=== PATIENT | female | born 1985 | race American Indian/Alaskan Native ===

== ENCOUNTER 2016-04-23 17:20 | Emergency (ER) | payer OTHER, MEDICAID ==
--- NOTE | 2016-04-23 17:39 | EDM.PDOC ---
ED HPI GENERAL MEDICAL PROBLEM - General Chief Complaint: General Stated Complaint: FEELING SHAKY Time Seen by Provider: 04/23/16 17:38 Source of Information: Reports: Patient, RN, RN notes reviewed History Limitations: Reports: No limitations - History of Present Illness INITIAL COMMENTS - FREE TEXT/NARRATIVE: Patient complains of shadkey, lightheaded and weak around 10:30 a.m. and again around 2:30-3 p.m. each day for 6 years but worse this week. Episodes last about 1 hour. Symptoms usually resolve when she eats. Denies excess thirst. No weight changes. New med (Protonix) since 1 month ago, but denies change in symptoms with med. Severity: moderate Improves with: Reports: None Worsens with: Reports: None Associated Symptoms: Reports: no other symptoms - Related Data Allergies Allergy/AdvReac Type Severity Reaction Status Date / Time No Known Allergies Allergy Verified 04/23/16 17:26 Home Meds: Home Meds Ibuprofen 1 tab PO ASDIRECTED PRN 10/12/14 [History] Olopatadine [Pataday 0.2% Ophth Soln] 1 drop EYEBOTH ASDIRECTED 10/12/14 [ History] Ferrous Sulfate [Iron] PO BID 04/23/16 [History] PNV95/Ferrous Fumarate/FA [ Tablet] 1 each PO DAILY 04/23/16 [History] Pantoprazole Sodium [Protonix] 20 mg PO DAILY 04/23/16 [History] Past Medical History - Past Health History Medical/Surgical History: Denies Medical/Surgical History HEENT History: Reports: Allergic rhinitis, Other (see below) Other HEENT History: recurrent tonsillitis Cardiovascular History: Reports: None Respiratory History: Reports: None Gastrointestinal History: Reports: GERD, Hiatal hernia, Other (see below) ( hital hernia) Genitourinary History: Reports: None : 0 Para: 0 Other OB/BYN History: ADOPTED ONE SON Musculoskeletal History: Reports: Other (see below) Other Musculoskeletal History: CERVICAL INTRAEPITHELIAL NEOPLASIA GRADE 3 Neurological History: Reports: None Psychiatric History: Reports: None Endocrine/Metabolic History: Reports: None, Obesity/BMI 30+ (morbid) Hematologic History: Reports: None, Anemia Immunologic History: Reports: None Oncologic (Cancer) History: Reports: None Dermatologic History: Reports: None - Infectious Disease History Infectious Disease History: Reports: Chicken pox - Past Surgical History Female Surgical History: Reports: Other (see below) Other Female Surgeries/Procedures: VAGINAL CERVICAL LEEP TREATMENT Other Neurological Surgeries/Procedures: EMG-2 EXTREMITIES Social & Family History - Family History Family Medical History: Noncontributory Endocrine/Metabolic: Reports: Diabetes, type II (both parents) - Tobacco Use Smoking Status *Q: Never Smoker Second Hand Smoke Exposure: No - Caffeine Use Caffeine Use: Reports: Tea - Alcohol Use Alcohol Use History: No Days Per Week of Alcohol Use: 0 - Recreational Drug Use Recreational Drug Use: No - Living Situation & Occupation Living situation: Reports: single Social History Comment: 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 ED ROS GENERAL - Review of Systems Review Of Systems: ROS reveals no pertinent complaints other than HPI. ED EXAM, GENERAL - Physical Exam Exam: See Below Exam Limited By: No limitations General Appearance: obese Eye Exam: bilateral eye: normal inspection Ears: normal external exam, normal canal, hearing grossly normal, normal TMs Nose: normal inspection, normal mucosa, no blood Throat/Mouth: Normal inspection, Normal lips, Normal teeth, Normal gums, Normal oropharynx, Normal voice, No airway compromise Head: atraumatic, normocephalic Neck: normal inspection, supple, non-tender, full range of motion Respiratory/Chest: no respiratory distress, lungs clear, normal breath sounds, no accessory muscle use, chest non-tender Cardiovascular: normal peripheral pulses, regular rate, rhythm, no edema, no gallop, no JVD, no murmur, no rub GI/Abdominal: other (benign obese abdomen) Back Exam: normal inspection, full range of motion, NT Extremities: normal inspection, normal range of motion, non-tender, normal capillary refill, no pedal edema Neurological: alert Psychiatric: normal affect, normal mood Skin Exam: Warm, Dry, Intact, Normal color, No rash Lymphatic: no adenopathy EKG INTERPRETATION EKG Date: 04/23/16 Time: 17:54 Rhythm: other (sinus arrhythmia) Rate (beats/min): 60 (variable 52-71.) [place]: normal P-wave: present QRS: normal ST-T: normal QT: normal Comparison: NA - no prior EKG Course - Vital Signs Last Recorded V/S: Last Vital Signs Temp 36.3 C 04/23/16 17:28 Pulse 60 04/23/16 17:28 Resp 16 04/23/16 17:28 BP 155/66 H 04/23/16 17:28 Pulse Ox 100 04/23/16 17:28 Orthostatic Blood Pressure [ 142/77 Standing] Orthostatic Blood Pressure [ 145/87 Sitting] Orthostatic Blood Pressure [ 133/81 Supine] - Orders/Labs/Meds Orders: Active Orders 24 hr Category Date Time Status EKG 12 Lead [EKG Documentation Completion] [RC] STAT Care 04/23/16 17:51 Active Orthostatic Vital Signs [RC] ASDIRECTED Care 04/23/16 17:52 Active DRUG SCREEN URINE BIORAD [URCHEM] Stat Lab 04/23/16 17:50 Received THYROXINE (T4) [REF] Stat Lab 04/23/16 18:12 Received TSH ULTRASENSITIVE [CHEM] Stat Lab 04/23/16 18:12 Received Labs: Laboratory Tests 04/23/16 04/23/16 04/23/16 Range/Units 17:50 17:50 18:12 WBC 12.8 H (5.0-10.0) 10^3/uL RBC 4.82 (4.2-5.4) 10^6/uL Hgb 11.7 L (12.0-16.0) g/dL Hct 36.9 L (37.0-47.0) % MCV 76.6 L (80-100) fL MCH 24.3 L (27.0-34.0) pg MCHC 31.7 L (33.0-35.0) g/dL Plt Count 315 (150-450) 10^3/uL Neut % (Auto) 63.3 (42.2-75.2) % Lymph % (Auto) 26.9 (20.5-50.1) % [place] % (Auto) 7.8 (2-8) % Eos % (Auto) 1.7 (1.0-3.0) % Baso % (Auto) 0.3 (0.0-1.0) % D-Dimer, Quantitative (0-400) ng/mL Sodium (135-145) mmol/L Potassium (3.6-5.0) mmol/L Chloride (101-111) mmol/L Carbon Dioxide (21.0-31.0) mmol/L Anion Gap BUN (7-18) mg/dL Creatinine (0.6-1.3) mg/dL Est Cr Clr Drug Dosing mL/min Estimated GFR (MDRD) BUN/Creatinine Ratio Glucose (74-105) mg/dL Calcium (8.4-10.2) mg/dl Magnesium (1.8-2.5) mg/dL Total Bilirubin (0.2-1.0) mg/dL AST (10-42) IU/L ALT (10-60) IU/L Alkaline Phosphatase (42-121) IU/L Total Protein (6.7-8.2) g/dl Albumin (3.2-5.5) g/dl Globulin Albumin/Globulin Ratio Amylase (28-100) U/L Lipase (22-51) U/L Urine Color Light yellow (YELLOW) Urine Appearance Slightly cloudy (CLEAR) Urine pH 6.0 (5.0-9.0) Ur Specific [place] 1.010 (1.005-1.030) Urine Protein Negative (NEGATIVE) Urine Glucose (UA) Negative (NEGATIVE) Urine Ketones Negative (NEGATIVE) Urine Occult Blood Moderate H (NEGATIVE) Urine Nitrite Negative (NEGATIVE) Urine Bilirubin Negative (NEGATIVE) Urine Urobilinogen 0.2 (0.2-1.0) mg/dL Ur Leukocyte Esterase Negative (NEGATIVE) Urine RBC 5-10 H /HPF Urine WBC 0-5 (0-5/HPF) /HPF Ur Epithelial Cells Few /HPF Urine Bacteria Rare (0-FEW/HPF) /HPF Urine HCG, Qual Negative 04/23/16 04/23/16 Range/Units 18:12 18:12 WBC (5.0-10.0) 10^3/uL RBC (4.2-5.4) 10^6/uL Hgb (12.0-16.0) g/dL Hct (37.0-47.0) % MCV (80-100) fL MCH (27.0-34.0) pg MCHC (33.0-35.0) g/dL Plt Count (150-450) 10^3/uL Neut % (Auto) (42.2-75.2) % Lymph % (Auto) (20.5-50.1) % [place] % (Auto) (2-8) % Eos % (Auto) (1.0-3.0) % Baso % (Auto) (0.0-1.0) % D-Dimer, Quantitative < 100 (0-400) ng/mL Sodium 138 (135-145) mmol/L Potassium 3.8 (3.6-5.0) mmol/L Chloride 101 (101-111) mmol/L Carbon Dioxide 30.0 (21.0-31.0) mmol/L Anion Gap 10.8 BUN 13 (7-18) mg/dL Creatinine 0.8 (0.6-1.3) mg/dL Est Cr Clr Drug Dosing 83.51 mL/min Estimated GFR (MDRD) > 60 BUN/Creatinine Ratio 16.25 Glucose 88 (74-105) mg/dL Calcium 8.7 (8.4-10.2) mg/dl Magnesium 2.1 (1.8-2.5) mg/dL Total Bilirubin 0.3 (0.2-1.0) mg/dL AST 19 (10-42) IU/L ALT 26 (10-60) IU/L Alkaline Phosphatase 77 (42-121) IU/L Total Protein 7.5 (6.7-8.2) g/dl Albumin 3.7 (3.2-5.5) g/dl Globulin 3.8 Albumin/Globulin Ratio 0.97 Amylase 66 (28-100) U/L Lipase 39 (22-51) U/L Urine Color (YELLOW) Urine Appearance (CLEAR) Urine pH (5.0-9.0) Ur Specific [place] (1.005-1.030) Urine Protein (NEGATIVE) Urine Glucose (UA) (NEGATIVE) Urine Ketones (NEGATIVE) Urine Occult Blood (NEGATIVE) Urine Nitrite (NEGATIVE) Urine Bilirubin (NEGATIVE) Urine Urobilinogen (0.2-1.0) mg/dL Ur Leukocyte Esterase (NEGATIVE) Urine RBC /HPF Urine WBC (0-5/HPF) /HPF Ur Epithelial Cells /HPF Urine Bacteria (0-FEW/HPF) /HPF Urine HCG, Qual Departure - Departure Time of Disposition: 18:53 Disposition: Home, Self-Care 01 Condition: good Clinical Impression: Intermittent lightheadedness Instructions: Near-Syncope Forms: ED Department Discharge Additional Instructions: Follow up in clinic with your primary care provider for further evaluation. - My Orders Last 24 Hours: My Active Orders 04/23/16 17:50 DRUG SCREEN URINE BIORAD [URCHEM] Stat 04/23/16 17:51 EKG 12 Lead [EKG Documentation Completion] [RC] STAT 04/23/16 17:52 Orthostatic Vital Signs [RC] ASDIRECTED 04/23/16 18:12 THYROXINE (T4) [REF] Stat TSH ULTRASENSITIVE [CHEM] Stat - Assessment/Plan Last 24 Hours: My Active Orders 04/23/16 17:50 DRUG SCREEN URINE BIORAD [URCHEM] Stat 04/23/16 17:51 EKG 12 Lead [EKG Documentation Completion] [RC] STAT 04/23/16 17:52 Orthostatic Vital Signs [RC] ASDIRECTED 04/23/16 18:12 THYROXINE (T4) [REF] Stat TSH ULTRASENSITIVE [CHEM] Stat
[2016-04-23 18:47] LABS: CHLORIDE,CL 101 mmol/L (101-111); SODIUM,NA 138 mmol/L (135-145)
[2016-04-23 19:04] VITALS: BP 101/65
--- NOTE | 2016-05-14 22:46 | EKG ---
04/23/2016 - DESTINY ANNE E - TIME: 1754 EKG shows normal sinus rhythm. [facility] /[id number]
== END 2016-04-23 19:02 | disposition home or self-care (01) ==
LOC: DL.ED 17:20
DX: R42 Dizziness and giddiness (principal); K21.9 Gastro-esophageal reflux disease without esophagitis; E66.9 Obesity, unspecified; D64.9 Anemia, unspecified; Z79.899 Other long term (current) drug therapy
CPT/HCPCS: 36415; 80053; 80305; 81001; 81025; 82150; 83690; 83735; 84436; 84443; 85025; 85379; 93005; 99283

== ENCOUNTER 2016-06-11 12:39 | Emergency (ER) | payer OTHER, MEDICAID ==
[2016-06-11 12:54] VITALS: BP 148/87
[2016-06-11] MEDS ORDERED: LORazepam 2 MG/ML Syringe IVPUSH ONE (13:01)
[2016-06-11] MEDS ORDERED: Sodium Chloride 0.9% 10 ML Syringe FLUSH PRN (13:01)
--- NOTE | 2016-06-11 13:09 | EDM.PDOC ---
ED [facility] Behavioral Health - General Chief Complaint: Behavioral/Psych Stated Complaint: [id number] ANXIETY ATTACK Time Seen by Provider: 06/11/16 12:55 Source of Information: Reports: Patient Exam Limitations: Reports: No limitations - History of Present Illness INITIAL COMMENTS - FREE TEXT/NARRATIVE: This 31 yo female patient reports to the ED due to an anxiety attack. The patient reports she was working at [employer] with the [place] when she started to feel anxious (difficulties catching her breath, a feeling like something bad was going to happen and knots in her stomach). The patient reports she left her desk, went outside and took an Ativan (0.5 mg). The patient reports she started to feel better after a short amount of time. The patient then came to [place] when she started to have anxiety again. The patient came to the ED for further evaluation and care. The patient reports she has not had any recent changes in her family (no deaths or relationship changes) . The patient reports she does have an 11 yo son that has been doing well in school. The patient has been seeing Dr. Raphael for anxiety and is currently taking Welbutrin. The patient reports she had a dose increase about 2 weeks ago and is scheduled to see Dr. Raphael next month. The patient reports she has been feeling like her stomach is in knots over the past week or two with increased symptoms today. The patient denies any recent illnesses or injuries. The patient reports a past history of anxiety, but no depression. The patient has also seen a counselor for some relaxation techniques, but they have not helped much. The patient reports she did lift some weights, but has not had any cardio workouts for the past 2 weeks. Onset of Symptoms: Reports: today, sudden Symptom Onset Date: 06/11/16 Symptom Onset Time: 10:00 Duration of Symptoms: Reports: Intermittent, Recurring Severity: moderate Context, Behavioral Health: Reports: other (unknown) Associated Symptoms: Reports: anxiety Treatments W[employer] POLISHER: Reports: Other medication(s) (Ativan (0.5 mg)) - SAD Persons Scale (SPS) SPS Sex: Female SPS Age: Between 18-65 Years of Age SPS Depression: No SPS Previous Suicide Attempts: No SPS Alcohol Abuse/Drug Abuse: No SPS Rational Thinking Loss: No SPS Social Support Deficit: No SPS Organized Suicide Plan: No SPS No Spouse/Significant Other: No SPS Sickness: No SPS Sad Person Scale Score: 0 - Related Data Allergies Allergy/AdvReac Type Severity Reaction Status Date / Time No Known Allergies Allergy Verified 04/23/16 17:26 Home Medications: Home Meds Ibuprofen 1 tab PO ASDIRECTED PRN 10/12/14 [History] Olopatadine [Pataday 0.2% Ophth Soln] 1 drop EYEBOTH ASDIRECTED 10/12/14 [ History] Ferrous Sulfate [Iron] 1 tab PO BID 04/23/16 [History] Pantoprazole Sodium [Protonix] 20 mg PO DAILY 04/23/16 [History] LORazepam [Ativan] 0.5 mg PO BID 06/11/16 [History] buPROPion HCl [Wellbutrin Xl] 300 mg PO DAILY 06/11/16 [History] Past Medical History - Past Health History Medical/Surgical History: Denies Medical/Surgical History HEENT History: Reports: Allergic rhinitis, Other (see below) Other HEENT History: recurrent tonsillitis Cardiovascular History: Reports: None Respiratory History: Reports: None Gastrointestinal History: Reports: GERD, Hiatal hernia Genitourinary History: Reports: None Other OB/BYN History: ADOPTED ONE SON Musculoskeletal History: Reports: Other (see below) Other Musculoskeletal History: CERVICAL INTRAEPITHELIAL NEOPLASIA GRADE 3 Neurological History: Reports: None Psychiatric History: Reports: Anxiety Endocrine/Metabolic History: Reports: None, Obesity/BMI 30+ Hematologic History: Reports: Anemia Immunologic History: Reports: None Oncologic (Cancer) History: Reports: None Dermatologic History: Reports: None - Infectious Disease History Infectious Disease History: Reports: Chicken pox - Past Surgical History Female Surgical History: Reports: Other (see below) Other Female Surgeries/Procedures: VAGINAL CERVICAL LEEP TREATMENT Other Neurological Surgeries/Procedures: EMG-2 EXTREMITIES Social & Family History - Family History Family Medical History: Noncontributory Endocrine/Metabolic: Reports: Diabetes, type II - Tobacco Use Smoking Status *Q: Never Smoker Second Hand Smoke Exposure: No - Caffeine Use Caffeine Use: Reports: None - Alcohol Use Days Per Week of Alcohol Use: 0 - Recreational Drug Use Recreational Drug Use: No - Living Situation & Occupation Living situation: Reports: single ED ROS GENERAL - Review of Systems Review Of Systems: ROS reveals no pertinent complaints other than HPI. ED EXAM, BEHAVIORAL HEALTH - Physical Exam Exam: See Below Exam Limited By: No limitations General Appearance: alert, WD/WN, anxious, moderate distress, obese Eye Exam: bilateral eye: EOMI, normal inspection, PERRL Ears: normal external exam, normal canal, hearing grossly normal, normal TMs Nose: normal inspection, normal mucosa, no blood Throat/Mouth: Normal inspection, Normal lips, Normal teeth, Normal gums, Normal oropharynx, Normal voice, No airway compromise Head: atraumatic, normocephalic Neck: normal inspection, supple, non-tender, full range of motion Respiratory/Chest: no respiratory distress, lungs clear, normal breath sounds, no accessory muscle use, chest non-tender Cardiovascular: normal peripheral pulses, regular rate, rhythm, no edema, no gallop, no JVD, no murmur, no rub GI/Abdominal: normal bowel sounds, soft, non tender, no organomegaly, no distention, no abnormal bruit, no mass (Female) Exam: Deferred Rectal (Female) Exam: Deferred Back Exam: normal inspection, full range of motion, NT Extremities: normal inspection, normal range of motion, non-tender, normal capillary refill, no pedal edema Neurological: alert, normal mood/affect, CN II-XII intact, normal cognition, normal gait, no motor/sensory deficits, oriented x 3 Psychiatric: alert, normal cognition, oriented, tearful, agitated Skin Exam: Warm, Dry, Intact, Normal color, No rash COURSE, BEHAVIORAL HEALTH COMP - Course Vital Signs: Last Vital Signs Temp 36.6 C 06/11/16 12:50 Pulse 71 06/11/16 12:50 Resp 18 06/11/16 12:50 BP 148/87 H 06/11/16 12:50 Pulse Ox 100 06/11/16 12:50 Orders, Labs, Meds: Active Orders 24 hr Category Date Time Status Sodium Chloride 0.9% [Saline Flush] Med 06/11/16 13:01 Ordered 10 ml FLUSH ASDIRECTED PRN Saline Lock Insert [OM.PC] Routine Oth 06/11/16 13:01 Ordered Medication Orders Sodium Chloride (Saline Flush) 10 ml FLUSH ASDIRECTED PRN PRN Reason: Keep Vein Open Medications Generic Name Dose Route Start Last Admin Trade Name Freq PRN Reason Stop Dose Admin Sodium Chloride 10 ml 06/11/16 13:01 Saline Flush FLUSH ASDIRECTED PRN Keep Vein Open Discontinued Medications Generic Name Dose Route Start Last Admin Trade Name Freq PRN Reason Stop Dose Admin Lorazepam 1 mg 06/11/16 13:01 06/11/16 13:09 Ativan IVPUSH 06/11/16 13:02 1 mg ONETIME ONE Administration Departure - Departure Time of Disposition: 13:30 Disposition: Home, Self-Care 01 Condition: fair Clinical Impression: Anxiety Instructions: Panic Attacks, [id number] Forms: ED Department Discharge Care Plan Goals: The patient was advised of the examination results during the visit. The patient was given an IV dose of Ativan while in the ED. After the medication, the patient reports feeling much better. The patient was encouraged to continue to take her medications as prescribed, follow-up with Dr. Raphael and attempt to increase her exercise. If the patient has any additional symptoms or concerns , the patient should follow-up with her primary care facility or return to the emergency department. - My Orders Last 24 Hours: My Active Orders 06/11/16 13:01 Sodium Chloride 0.9% [Saline Flush] 10 ml FLUSH ASDIRECTED PRN Saline Lock Insert [OM.PC] Routine - Assessment/Plan Last 24 Hours: My Active Orders 06/11/16 13:01 Sodium Chloride 0.9% [Saline Flush] 10 ml FLUSH ASDIRECTED PRN Saline Lock Insert [OM.PC] Routine
== END 2016-06-11 13:37 | disposition home or self-care (01) ==
LOC: DL.ED 12:39
DX: F41.9 Anxiety disorder, unspecified (principal); E66.9 Obesity, unspecified; K21.9 Gastro-esophageal reflux disease without esophagitis; D64.9 Anemia, unspecified; Z79.899 Other long term (current) drug therapy
CPT/HCPCS: 96374; 99282; J2060

== ENCOUNTER 2016-07-01 19:59 | Emergency (ER) | payer OTHER, MEDICAID ==
[2016-07-01 22:38] VITALS: BP 138/88
--- NOTE | 2016-07-01 22:59 | EDM.PDOC ---
ED HPI GENERAL MEDICAL PROBLEM - General Chief Complaint: Lower Extremity Injury/Pain Stated Complaint: RT KNEE PAIN Time Seen by Provider: 07/01/16 22:30 Source of Information: Reports: Patient History Limitations: Reports: No Limitations - History of Present Illness INITIAL COMMENTS - FREE TEXT/NARRATIVE: pain right knee twisted while playing softball, Hurts to walk increased pain medially, does not feelweaker or going to give out Onset: Today Treatments CHIEF OF [employer]ICE: Reports: Other (see below) Other Treatments CHIEF OF [employer]ICE: none Right Knee Pain Score (Numeric/FACES): 8 - Related Data Allergies Allergy/AdvReac Type Severity Reaction Status Date / Time No Known Allergies Allergy Verified 07/01/16 22:03 Home Meds: Home Meds Ibuprofen 1 tab PO ASDIRECTED PRN 10/12/14 [History] Olopatadine [Pataday 0.2% Ophth Soln] 1 drop EYEBOTH ASDIRECTED 10/12/14 [ History] Ferrous Sulfate [Iron] 1 tab PO BID 04/23/16 [History] Pantoprazole Sodium [Protonix] 20 mg PO DAILY 04/23/16 [History] LORazepam [Ativan] 1 mg PO BID 06/11/16 [History] DULoxetine [Cymbalta] 20 mg PO DAILY 07/01/16 [History] Eye Drops For Allergies 1 drop EYEBOTH ASDIRECTED PRN 07/01/16 [History] Naproxen 250 mg PO BID PRN 07/01/16 [History] Past Medical History - Past Health History Medical/Surgical History: Denies Medical/Surgical History HEENT History: Reports: Allergic Rhinitis, Other (See Below) Other HEENT History: recurrent tonsillitis Cardiovascular History: Reports: None Respiratory History: Reports: None Gastrointestinal History: Reports: GERD, Hiatal Hernia Genitourinary History: Reports: None Other OB/BYN History: ADOPTED ONE SON Musculoskeletal History: Reports: Other (See Below) Other Musculoskeletal History: right knee sprain Neurological History: Reports: None Psychiatric History: Reports: Anxiety Endocrine/Metabolic History: Reports: None, Obesity/BMI 30+ Hematologic History: Reports: Anemia Immunologic History: Reports: None Oncologic (Cancer) History: Reports: None Dermatologic History: Reports: None - Infectious Disease History Infectious Disease History: Reports: Chicken Pox - Past Surgical History Other Neurological Surgeries/Procedures: EMG-2 EXTREMITIES Social & Family History - Family History Family Medical History: Noncontributory Endocrine/Metabolic: Reports: Diabetes, type II - Tobacco Use Smoking Status *Q: Unknown Ever Smoked Second Hand Smoke Exposure: Yes - Caffeine Use Caffeine Use: Reports: Coffee - Alcohol Use Days Per Week of Alcohol Use: 0 - Recreational Drug Use Recreational Drug Use: No - Living Situation & Occupation Living situation: Reports: Single Review of Systems - Review of Systems Review Of Systems: See Below Musculoskeletal: Reports: Joint Pain (right knee), Joint Swelling (mild) Skin: Reports: No Symptoms Neurological: Reports: No Symptoms Trauma Exam - Physical Exam Exam: See Below Exam Limited By: No Limitations General Appearance: Reports: Mild Distress Head: Reports: Atraumatic, Normocephalic Eyes: Bilateral Eye: EOMI Ears: Reports: Normal External Exam Throat/Mouth: Reports: Normal Lips, Normal Voice Neck: Reports: Full Range of Motion Respiratory Exam: Reports: No Respiratory Distress Cardiovascular: Reports: Regular Rate, Rhythm Extremities: Bony-Point Tenderness (right mediala knee), Joint Effusion (mild crepitus), Pain with Movement, Tenderness (increased pain with medial stress. ) , Unable to Bear Weight (guarded) Course - Vital Signs Last Recorded V/S: Last Vital Signs Temp 98.3 F 07/01/16 22:37 Pulse 88 07/01/16 22:37 Resp 16 07/01/16 22:37 BP 138/88 07/01/16 22:37 Pulse Ox 96 07/01/16 22:37 - Orders/Labs/Meds Meds: Medications Discontinued Medications Generic Name Dose Route Start Last Admin Trade Name Jose PRN Reason Stop Dose Admin Hydrocodone Bitart/Acetaminophen Confirm 07/01/16 23:08 07/01/16 23:15 [place] 325-10 Mg Administered 07/01/16 23:09 Not Given Dose 2 tab .ROUTE .STK-MED ONE - Radiology Interpretation Free Text/Narrative:: xray negative for fracture or dislocation Departure - Departure Time of Disposition: 23:00 Disposition: Home, Self-Care 01 Condition: good Clinical Impression: Sprain of knee - Discharge Information Instructions: Crutch Use, [id number], Knee Sprain, [id number] Forms: ED Department Discharge Additional Instructions: crutches, touch toe weight bearing knee immobilizer clinic followup Thursday hydrocodone 10/325 one every 6 hours as needed for severe pain #2 alternating tylenol 650mg and ibuprofen 600mg every 4 hours as needed ice to knee
[2016-07-01] MEDS ORDERED: Acetaminophen/HYDROcodone 325-10 MG Tab ONE (23:08)
[2016-07-01] MEDS ORDERED: Acetaminophen/HYDROcodone 325-10 MG Tab PO ONE (23:08)
== END 2016-07-01 23:09 | disposition home or self-care (01) ==
LOC: DL.ED 19:59
DX: S83.91XA Sprain of unspecified site of right knee, initial encounter (principal); K21.9 Gastro-esophageal reflux disease without esophagitis; F41.9 Anxiety disorder, unspecified; E66.9 Obesity, unspecified; D64.9 Anemia, unspecified; Z79.899 Other long term (current) drug therapy; X50.1XXA Overexertion from prolonged static or awkward postures, initial encounter
CPT/HCPCS: 73562; 99283; A9270

== ENCOUNTER 2016-09-02 10:11 | Emergency (ER) | payer OTHER, MEDICAID ==
--- NOTE | 2016-09-02 10:48 | EDM.PDOC ---
ED HPI GENERAL MEDICAL PROBLEM - General Chief Complaint: Genitourinary Problem Stated Complaint: [id number] 6/7 WEEKS PREG DISCHARGE AND BACK PAIN Time Seen by Provider: 09/02/16 10:40 Source of Information: Reports: Patient History Limitations: Reports: No Limitations - History of Present Illness INITIAL COMMENTS - FREE TEXT/NARRATIVE: This 31 yo female patient reports to the ED with vaginal discharge and right lower back pain. The patient reports she had some lower abdominal cramping yesterday. The patient reports her discharge was a mixture of mucus as well as some dark colored fluid. The patient reports she did do some increased exercise yesterday (walking at [employer]). The patient reports that this is her first . The patient has been seeing Dr. Raphael and has another appointment on Thursday to check her hormone levels. Onset: Today, Sudden Duration: Constant Location: Reports: Abdomen, Back (right lower back) Quality: Reports: Ache, Dull Severity: Moderate Improves with: Reports: Rest Worsens with: Reports: Movement Associated Symptoms: Reports: No Other Symptoms Right Lower Back Pain Score (Numeric/FACES): 6 - Related Data Allergies Allergy/AdvReac Type Severity Reaction Status Date / Time No Known Allergies Allergy Verified 09/02/16 10:16 Home Meds: Home Meds Pantoprazole Sodium [Protonix] 20 mg PO DAILY 04/23/16 [History] Pnv No.95/Ferrous Fum/Folic AC [ Multivitamin Tablet] 1 tab PO DAILY [History] Past Medical History - Past Health History Medical/Surgical History: Denies Medical/Surgical History HEENT History: Reports: Allergic Rhinitis, Impaired Vision, Other (See Below) Other HEENT History: recurrent tonsillitis Cardiovascular History: Reports: None Respiratory History: Reports: None Gastrointestinal History: Reports: GERD, Hiatal Hernia Genitourinary History: Reports: None 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 OB/BYN History: ADOPTED ONE SON Musculoskeletal History: Reports: Other (See Below) Other Musculoskeletal History: right knee sprain Neurological History: Reports: None Psychiatric History: Reports: Anxiety Endocrine/Metabolic History: Reports: None, Obesity/BMI 30+ Hematologic History: Reports: Anemia Immunologic History: Reports: None Oncologic (Cancer) History: Reports: None Dermatologic History: Reports: None - Infectious Disease History Infectious Disease History: Reports: Chicken Pox - Past Surgical History Other Neurological Surgeries/Procedures: EMG-2 EXTREMITIES Social & Family History - Family History Family Medical History: Noncontributory Endocrine/Metabolic: Reports: Diabetes, type II - Tobacco Use Smoking Status *Q: Former Smoker Used Tobacco, but Quit: Yes Month Tobacco Last Used: ? Second Hand Smoke Exposure: Yes - Caffeine Use Caffeine Use: Reports: Coffee, Tea - Alcohol Use Days Per Week of Alcohol Use: 0 - Recreational Drug Use Recreational Drug Use: No - Living Situation & Occupation Living situation: Reports: Single ED ROS GENERAL - Review of Systems Review Of Systems: ROS reveals no pertinent complaints other than HPI. ED EXAM, RENAL/ - Physical Exam Exam: See Below Exam Limited By: No Limitations General Appearance: Alert, WD/WN, Mild Distress, Obese Eye Exam: Bilateral Eye: EOMI, Normal Inspection, PERRL Ears: Normal External Exam, Normal Canal, Hearing Grossly Normal, Normal TMs Nose: Normal Inspection, Normal Mucosa, No Blood Throat/Mouth: Normal Inspection, Normal Lips, Normal Teeth, Normal Gums, Normal Oropharynx, Normal Voice, No Airway Compromise Head: Atraumatic, Normocephalic Neck: Normal Inspection, Supple, Non-Tender, Full Range of Motion Respiratory/Chest: No Respiratory Distress, Lungs Clear, Normal Breath Sounds, No Accessory Muscle Use, Chest Non-Tender Cardiovascular: Normal Peripheral Pulses, Regular Rate, Rhythm, No Edema, No Gallop, No JVD, No Murmur, No Rub GI/Abdominal: Normal Bowel Sounds, Soft, No Organomegaly, No Distention, No Abnormal Bruit, No Mass, Pelvis Stable, Tender (lower abdomen) (Female) Exam: Deferred Rectal (Female) Exam: Deferred Back Exam: Paraspinal Tenderness (right lower back) Extremities: Normal Inspection, Normal Range of Motion, Non-Tender, Normal Capillary Refill, No Pedal Edema Neurological: Alert, Oriented, CN II-XII Intact, Normal Cognition, Normal Gait, Normal Reflexes, No Motor/Sensory Deficits Psychiatric: Normal Affect, Normal Mood Skin Exam: Warm, Dry, Intact, Normal Color, No Rash Lymphatic: No Adenopathy Course - Vital Signs Last Recorded V/S: Last Vital Signs Temp 36.9 C 09/02/16 12:14 Pulse 62 09/02/16 12:14 Resp 14 09/02/16 12:14 BP 120/73 09/02/16 12:14 Pulse Ox 100 09/02/16 12:14 - Orders/Labs/Meds Orders: Active Orders 24 hr Category Date Time Status OB Transvaginal [US] Urgent Exams 09/02/16 11:11 Ordered Labs: Laboratory Tests 09/02/16 09/02/16 09/02/16 Range/Units 10:28 10:28 10:30 WBC 8.6 (5.0-10.0) 10^3/uL RBC 4.54 (4.2-5.4) 10^6/uL Hgb 12.1 (12.0-16.0) g/dL Hct 37.1 (37.0-47.0) % MCV 81.7 (80-100) fL MCH 26.7 L (27.0-34.0) pg MCHC 32.6 L (33.0-35.0) g/dL Plt Count 299 (150-450) 10^3/uL Neut % (Auto) 74.3 (42.2-75.2) % Lymph % (Auto) 17.7 L (20.5-50.1) % [place] % (Auto) 5.7 (2-8) % Eos % (Auto) 2.1 (1.0-3.0) % Baso % (Auto) 0.2 (0.0-1.0) % Sodium (135-145) mmol/L Potassium (3.6-5.0) mmol/L Chloride (101-111) mmol/L Carbon Dioxide (21.0-31.0) mmol/L Anion Gap BUN (7-18) mg/dL Creatinine (0.6-1.3) mg/dL Est Cr Clr Drug Dosing mL/min Estimated GFR (MDRD) BUN/Creatinine Ratio Glucose (74-105) mg/dL Calcium (8.4-10.2) mg/dl Total Bilirubin (0.2-1.0) mg/dL AST (10-42) IU/L ALT (10-60) IU/L Alkaline Phosphatase (42-121) IU/L Total Protein (6.7-8.2) g/dl Albumin (3.2-5.5) g/dl Globulin Albumin/Globulin Ratio HCG, Qual HCG, Quant (0-25) mIU/ml Beta HCG, Quant mIU/ml Urine Color Dark yellow (YELLOW) Urine Appearance Cloudy (CLEAR) Urine pH 6.5 (5.0-9.0) Ur Specific [place] 1.020 (1.005-1.030) Urine Protein 30 H (NEGATIVE) Urine Glucose (UA) Negative (NEGATIVE) Urine Ketones Trace H (NEGATIVE) Urine Occult Blood Moderate H (NEGATIVE) Urine Nitrite Negative (NEGATIVE) Urine Bilirubin Small H (NEGATIVE) Urine Urobilinogen 0.2 (0.2-1.0) mg/dL Ur Leukocyte Esterase Small H (NEGATIVE) Urine RBC 5-10 H /HPF Urine WBC 10-20 H (0-5/HPF) /HPF Ur Epithelial Cells Moderate H /HPF Amorphous Sediment Rare (0/HPF) /HPF Urine Bacteria Few (0-FEW/HPF) /HPF Urine Mucus Many H /LPF Urine Opiates Screen Negative (NEGATIVE) Ur Oxycodone Screen Negative (NEGATIVE) Urine Methadone Screen Negative (NEGATIVE) Ur Barbiturates Screen Negative (NEGATIVE) U Tricyclic Antidepress Negative (NEGATIVE) Ur Phencyclidine Scrn Negative (NEGATIVE) Ur Amphetamine Screen Negative (NEGATIVE) U Methamphetamines Scrn Negative (NEGATIVE) Urine MDMA Screen Negative (NEGATIVE) U Benzodiazepines Scrn Negative (NEGATIVE) Urine Cocaine Screen Negative (NEGATIVE) U Marijuana (THC) Screen Negative (NEGATIVE) 09/02/16 09/02/16 Range/Units 10:30 10:30 WBC (5.0-10.0) 10^3/uL RBC (4.2-5.4) 10^6/uL Hgb (12.0-16.0) g/dL Hct (37.0-47.0) % MCV (80-100) fL MCH (27.0-34.0) pg MCHC (33.0-35.0) g/dL Plt Count (150-450) 10^3/uL Neut % (Auto) (42.2-75.2) % Lymph % (Auto) (20.5-50.1) % [place] % (Auto) (2-8) % Eos % (Auto) (1.0-3.0) % Baso % (Auto) (0.0-1.0) % Sodium 137 (135-145) mmol/L Potassium 3.8 (3.6-5.0) mmol/L Chloride 103 (101-111) mmol/L Carbon Dioxide 23.0 (21.0-31.0) mmol/L Anion Gap 14.8 BUN 12 (7-18) mg/dL Creatinine 0.6 (0.6-1.3) mg/dL Est Cr Clr Drug Dosing 111.35 mL/min Estimated GFR (MDRD) > 60 BUN/Creatinine Ratio 20.00 Glucose 113 H (74-105) mg/dL Calcium 8.8 (8.4-10.2) mg/dl Total Bilirubin 0.6 (0.2-1.0) mg/dL AST 21 (10-42) IU/L ALT 33 (10-60) IU/L Alkaline Phosphatase 81 (42-121) IU/L Total Protein 7.2 (6.7-8.2) g/dl Albumin 3.7 (3.2-5.5) g/dl Globulin 3.5 Albumin/Globulin Ratio 1.06 HCG, Qual Positive HCG, Quant > 1370 H (0-25) mIU/ml Beta HCG, Quant 96631 mIU/ml Urine Color (YELLOW) Urine Appearance (CLEAR) Urine pH (5.0-9.0) Ur Specific [place] (1.005-1.030) Urine Protein (NEGATIVE) Urine Glucose (UA) (NEGATIVE) Urine Ketones (NEGATIVE) Urine Occult Blood (NEGATIVE) Urine Nitrite (NEGATIVE) Urine Bilirubin (NEGATIVE) Urine Urobilinogen (0.2-1.0) mg/dL Ur Leukocyte Esterase (NEGATIVE) Urine RBC /HPF Urine WBC (0-5/HPF) /HPF Ur Epithelial Cells /HPF Amorphous Sediment (0/HPF) /HPF Urine Bacteria (0-FEW/HPF) /HPF Urine Mucus /LPF Urine Opiates Screen (NEGATIVE) Ur Oxycodone Screen (NEGATIVE) Urine Methadone Screen (NEGATIVE) Ur Barbiturates Screen (NEGATIVE) U Tricyclic Antidepress (NEGATIVE) Ur Phencyclidine Scrn (NEGATIVE) Ur Amphetamine Screen (NEGATIVE) U Methamphetamines Scrn (NEGATIVE) Urine MDMA Screen (NEGATIVE) U Benzodiazepines Scrn (NEGATIVE) Urine Cocaine Screen (NEGATIVE) U Marijuana (THC) Screen (NEGATIVE) Departure - Departure Time of Disposition: 13:44 Disposition: Home, Self-Care 01 Condition: Fair (normal ) Clinical Impression: Normal in first trimester - Discharge Information Instructions: First Trimester of , [id number] Forms: ED Department Discharge Care Plan Goals: The patient was advised of the examination, lab and ultrasound results during the visit. The patient was encouraged to continue to follow-up with Dr. Raphael. If the patient has any additional symptoms or concerns, the patient should follow-up with her primary care facility or return to the emergency department. - My Orders Last 24 Hours: My Active Orders 09/02/16 11:11 OB Transvaginal [US] Urgent - Assessment/Plan Last 24 Hours: My Active Orders 09/02/16 11:11 OB Transvaginal [US] Urgent
[2016-09-02 11:00] LABS: CHLORIDE,CL 103 mmol/L (101-111); SODIUM,NA 137 mmol/L (135-145)
[2016-09-02 12:15] VITALS: BP 120/73
--- NOTE | 2016-09-02 13:33 | US ---
CLINICAL HISTORY: 31-year-old gravid 1 para 0 female (LMP 19 July 2016) with serum hCG of 42,441. INTERPRETATION: Screening obstetrical sonogram confirms enlarged midline uterus with a clearly demonstrated central gestational sac (small 2.0 x 7.2 mm collection of subchorionic fluid. Bleed?). pole with a heart rate of 109 bpm has a crown-rump length measurement 5.5 mm that approximates a 6 week 3 day gestation (adjacent 3.4 mm yolk sac). Solitary small 2.54 cm diameter cyst left adnexa (probable corpus luteum of ). No free flui d in the cul-de-sac. CONCLUSION: Single live first trimester intrauterine gestation (see comment above regarding subchori onic fluid).
== END 2016-09-02 13:48 | disposition home or self-care (01) ==
LOC: DL.ED 10:11
DX: Z34.91 Encounter for supervision of normal pregnancy, unspecified, first trimester (principal); O99.611 Diseases of the digestive system complicating pregnancy, first trimester; O99.211 Obesity complicating pregnancy, first trimester; H54.7 Unspecified visual loss; K21.9 Gastro-esophageal reflux disease without esophagitis; E66.9 Obesity, unspecified; Z87.891 Personal history of nicotine dependence; Z79.899 Other long term (current) drug therapy; Z3A.01 Less than 8 weeks gestation of pregnancy
CPT/HCPCS: 36415; 76815; 76817; 80053; 80305; 81001; 84702; 84703; 85025; 99284

== ENCOUNTER 2016-09-13 19:25 | Emergency (ER) | payer OTHER, MEDICAID ==
--- NOTE | 2016-09-13 19:38 | EDM.PDOC ---
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 Back Pain Score (Numeric/FACES): 4 - Related Data Allergies Allergy/AdvReac Type Severity Reaction Status Date / Time No Known Allergies Allergy Verified 09/13/16 19:37 Home Meds: Home Meds Pantoprazole Sodium [Protonix] 20 mg PO DAILY 04/23/16 [History] Pnv No.95/Ferrous Fum/Folic AC [ Multivitamin Tablet] 1 tab PO DAILY [History] Ferrous Sulfate 325 mg PO DAILY 09/13/16 [History] Past Medical History - Past Health History Medical/Surgical History: Denies Medical/Surgical History HEENT History: Reports: Allergic Rhinitis, Impaired Vision, Other (See Below) Other HEENT History: recurrent tonsillitis Cardiovascular History: Reports: None Respiratory History: Reports: None Gastrointestinal History: Reports: GERD, Hiatal Hernia Genitourinary History: Reports: None 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 OB/BYN History: ADOPTED ONE SON Musculoskeletal History: Reports: Other (See Below) Other Musculoskeletal History: right knee sprain Neurological History: Reports: None Psychiatric History: Reports: Anxiety Endocrine/Metabolic History: Reports: Obesity/BMI 30+ Hematologic History: Reports: Anemia Immunologic History: Reports: None Oncologic (Cancer) History: Reports: None Dermatologic History: Reports: None - Infectious Disease History Infectious Disease History: Reports: Chicken Pox - Past Surgical History Head Surgeries/Procedures: Reports: None Other Neurological Surgeries/Procedures: EMG-2 EXTREMITIES Social & Family History - Family History Family Medical History: Noncontributory Endocrine/Metabolic: Reports: Diabetes, type II - Tobacco Use Smoking Status *Q: Never Smoker Used Tobacco, but Quit: Yes Month Tobacco Last Used: ? Second Hand Smoke Exposure: Yes - Caffeine Use Caffeine Use: Reports: Tea - Alcohol Use Days Per Week of Alcohol Use: 0 - Recreational Drug Use Recreational Drug Use: No - Living Situation & Occupation Living situation: Reports: Single ED [facility] GENERAL - Review of Systems Review Of Systems: ROS reveals no pertinent complaints other than HPI. ED EXAM - Physical Exam Exam: See Below Exam Limited By: No Limitations General Appearance: Alert, WD/WN, Mild Distress, Other (upset) Ears: Hearing Grossly Normal Throat/Mouth: Normal Voice, No Airway Compromise Head: Atraumatic Neck: Non-Tender, Full Range of Motion Respiratory/Chest: No Respiratory Distress Cardiovascular: Regular Rate, Rhythm GI/Abdominal Exam: Soft, Non-Tender Neurological: Alert, Oriented, Normal Cognition, Normal Gait, No Motor/Sensory Deficits Psychiatric: Anxious Skin Exam: Warm, Dry Lymphatic: No Adenopathy Course - Vital Signs Last Recorded V/S: Last Vital Signs Temp 36.4 C 09/13/16 21:25 Pulse 60 09/13/16 21:25 Resp 18 09/13/16 21:25 BP 131/73 09/13/16 21:25 Pulse Ox 99 09/13/16 21:25 - Orders/Labs/Meds Orders: Active Orders 24 hr Category Date Time Status OB Ltd 1 or More Fetus [US] Urgent Exams 09/13/16 20:23 Taken OB Transvaginal [US] Urgent Exams 09/13/16 20:49 Taken Labs: Laboratory Tests 09/13/16 09/13/16 09/13/16 Range/Units 19:40 19:40 19:40 WBC 11.9 H (5.0-10.0) 10^3/uL RBC 4.32 (4.2-5.4) 10^6/uL Hgb 11.7 L (12.0-16.0) g/dL Hct 35.1 L (37.0-47.0) % MCV 81.3 (80-100) fL MCH 27.1 (27.0-34.0) pg MCHC 33.3 (33.0-35.0) g/dL Plt Count 333 (150-450) 10^3/uL Neut % (Auto) 73.1 (42.2-75.2) % Lymph % (Auto) 17.9 L (20.5-50.1) % [place] % (Auto) 6.6 (2-8) % Eos % (Auto) 2.1 (1.0-3.0) % Baso % (Auto) 0.3 (0.0-1.0) % Sodium 137 (135-145) mmol/L Potassium 3.5 L (3.6-5.0) mmol/L Chloride 105 (101-111) mmol/L Carbon Dioxide 21.0 (21.0-31.0) mmol/L Anion Gap 14.5 BUN 10 (7-18) mg/dL Creatinine 0.6 (0.6-1.3) mg/dL Est Cr Clr Drug Dosing 111.35 mL/min Estimated GFR (MDRD) > 60 BUN/Creatinine Ratio 16.66 Glucose 127 H (74-105) mg/dL Calcium 8.8 (8.4-10.2) mg/dl Total Bilirubin 0.4 (0.2-1.0) mg/dL AST 16 (10-42) IU/L ALT 19 (10-60) IU/L Alkaline Phosphatase 70 (42-121) IU/L Total Protein 7.1 (6.7-8.2) g/dl Albumin 3.6 (3.2-5.5) g/dl Globulin 3.5 Albumin/Globulin Ratio 1.03 HCG, Quant > 1370 H (0-25) mIU/ml Beta HCG, Quant [id number] mIU/ml - Re-Assessments/Exams Free Text/Narrative Re-Assessment/Exam: 09/13/16 22:17 results discussed with pt who is feeling fine presently. Departure - Departure Time of Disposition: 22:18 Disposition: Home, Self-Care 01 Condition: Good Clinical Impression: First-trimester bleeding - Discharge Information Instructions: Vaginal Bleeding During , First Trimester, [id number] Forms: ED Department Discharge Additional Instructions: 1) AVOID BENDING LIFTING STRAINING 2) AVOID CLIMBING STAIRS 3) FOLLOW UP WITH FAMILY DOCTOR NEEDED PATIENT MAY WORK BUT SHOULD FOLLOW ABOVE INSTRUCTIONS ESPECIALLY IN REGARDS TO CLIMBING STAIRS - My Orders Last 24 Hours: My Active Orders 09/13/16 20:23 OB Ltd 1 or More Fetus [US] Urgent 09/13/16 20:49 OB Transvaginal [US] Urgent - Assessment/Plan Last 24 Hours: My Active Orders 09/13/16 20:23 OB Ltd 1 or More Fetus [US] Urgent 09/13/16 20:49 OB Transvaginal [US] Urgent
[2016-09-13 20:03] LABS: CHLORIDE,CL 105 mmol/L (101-111); SODIUM,NA 137 mmol/L (135-145)
[2016-09-13 21:26] VITALS: BP 131/73
== END 2016-09-13 22:24 | disposition home or self-care (01) ==
LOC: DL.ED 19:25
DX: O20.9 Hemorrhage in early pregnancy, unspecified (principal); O99.211 Obesity complicating pregnancy, first trimester; O99.611 Diseases of the digestive system complicating pregnancy, first trimester; H54.7 Unspecified visual loss; K21.9 Gastro-esophageal reflux disease without esophagitis; E66.9 Obesity, unspecified; Z86.2 Personal history of diseases of the blood and blood-forming organs and certain disorders involving the immune mechanism; Z79.899 Other long term (current) drug therapy; Z3A.08 8 weeks gestation of pregnancy
CPT/HCPCS: 36415; 76815; 76817; 80053; 84702; 85025; 99284

== ENCOUNTER 2017-04-19 23:49 | Inpatient (IN) | payer OTHER ==
[2017-04-20] MEDS ORDERED: Penicillin G Potassium 5 MILLUNITS in Sodium Chloride 0.9% 100 ML IV ONE ×2
[2017-04-20] MEDS ORDERED: Lactated Ringers 500 ML IV ONE (00:20)
[2017-04-20] MEDS ORDERED: Misoprostol 400 MCG (4 X 100 MCG TAB) RECTAL PRN (00:20)
[2017-04-20] MEDS ORDERED: Carboprost Tromethamine 250 MCG/1 ML Amp IM PRN (00:20)
[2017-04-20] MEDS ORDERED: Lidocaine 1% 30 ML SDV INJECT PRN (00:20)
[2017-04-20] MEDS ORDERED: Acetaminophen 325 MG Tab PO PRN ×2 (00:20)
[2017-04-20] MEDS ORDERED: Ondansetron 4 MG/2 ML SDV IV PRN (00:20)
[2017-04-20] MEDS ORDERED: Sodium Chloride 0.9% 10 ML Syringe FLUSH PRN (00:20)
[2017-04-20] MEDS ORDERED: Methylergonovine 0.2 MG/1 ML Amp IM PRN (00:20)
[2017-04-20] MEDS ORDERED: Tranexamic Acid 1,000 MG in Sodium Chloride 0.9% 100 ML IV PRN (00:20)
[2017-04-20] MEDS ORDERED: hydrOXYzine HCl 25 MG Tab PO PRN (00:32)
[2017-04-20] MEDS: Misoprostol 25 MCG (1/4 of 100 MCG) Tab VAG PRN ×4 (01:17→18:40)
--- NOTE | 2017-04-20 03:44 | PCM.LDHP ---
L&D History of Present Illness - General Date of Service: 04/20/17 Admit Problem/Dx: Patient Status Order with Admit Dx/Problem 04/20/17 00:20 Patient Status [ADT] Routine Admission Diagnosis/Problem Admission Diagnosis/Problem High risk Source of Information: Patient History Limitations: Reports: No Limitations - History of Present Illness Introduction:: 32-year-old presents for IOL for impaired glucose tolerance and suspected macrosomia at 39w2d gestation. Patient has been feeling well. Baby has been active. No vaginal bleeding or leaking of fluid. Last ultrasound was 04/15/17 and baby's estimated weight was 3992 grams. - Related Data Allergies/Adverse Reactions: Allergies Allergy/AdvReac Type Severity Reaction Status Date / Time No Known Allergies Allergy Verified 04/20/17 01:12 Home Medications: Home Meds Pnv No.95/Ferrous Fum/Folic AC [ Multivitamin Tablet] 1 tab PO DAILY [History] Ferrous Sulfate 325 mg PO DAILY 09/13/16 [History] hydrOXYzine Pamoate [Vistaril] 25 mg PO BEDTIME 12/04/16 [History] Past Medical History - Past Health History Medical/Surgical History: Denies Medical/Surgical History HEENT History: Reports: Allergic Rhinitis, Impaired Vision, Other (See Below) Other HEENT History: recurrent tonsillitis Cardiovascular History: Reports: None Respiratory History: Reports: None Gastrointestinal History: Reports: GERD, Hiatal Hernia Genitourinary History: Reports: None 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 OB/BYN History: custody of sister's son Musculoskeletal History: Reports: Other (See Below) Other Musculoskeletal History: right knee sprain Neurological History: Reports: None Psychiatric History: Reports: Anxiety, Depression Endocrine/Metabolic History: Reports: Obesity/BMI 30+ Hematologic History: Reports: Anemia Immunologic History: Reports: None Oncologic (Cancer) History: Reports: None Dermatologic History: Reports: None - Infectious Disease History Infectious Disease History: Reports: None - Past Surgical History Head Surgeries/Procedures: Reports: None Cardiovascular Surgical History: Reports: None Female Surgical History: Reports: None Other Neurological Surgeries/Procedures: EMG-2 EXTREMITIES Social & Family History - Family History Family Medical History: Noncontributory Endocrine/Metabolic: Reports: Diabetes, type II - Tobacco Use Smoking Status *Q: Never Smoker Used Tobacco, but Quit: Yes Month Tobacco Last Used: 11/2009 Second Hand Smoke Exposure: No - Caffeine Use Caffeine Use: Reports: None - Alcohol Use Days Per Week of Alcohol Use: 0 - Recreational Drug Use Recreational Drug Use: No - Living Situation & Occupation Living situation: Reports: Single H&P Review of Systems - Review of Systems: Review Of Systems: ROS reveals no pertinent complaints other than HPI. L&D Exam - Exam Exam: See Below - Vital Signs Weight: 140.614 kg - OB Specific Fundal Height In cm: 43 Movement: Active Heart Tones: Present Heart Rate (FHR) Variability: Moderate (6-25 bmp) Presentation: Vertex - Ponce Score Ponce Score Cervix Position: Posterior Ponce Score Consistency: Medium Ponce Score Effacement: 31-50% Ponce Score Dilation: Closed Ponce Score 's Station: -3 Ponce Score Total: 2 - Exam General: Alert, Oriented Lungs: Clear to Auscultation, Normal Respiratory Effort Cardiovascular: Regular Rate, Regular Rhythm. No: Systolic Murmur, Diastolic Murmur Extremities: No Pedal Edema (2+ to lower extremities bilaterally) Skin: Warm, Dry, Intact - Patient Data Lab Results Last 24 hrs: Laboratory Results - last 24 hr 04/20/17 04/20/17 04/20/17 Range/Units 00:45 00:45 01:45 WBC 9.2 (5.0-10.0) 10^3/uL RBC 4.64 (4.2-5.4) 10^6/uL Hgb 12.5 (12.0-16.0) g/dL Hct 38.0 (37.0-47.0) % MCV 81.9 (80-100) fL MCH 26.9 L (27.0-34.0) pg MCHC 32.9 L (33.0-35.0) g/dL Plt Count 271 (150-450) 10^3/uL BUN 12 (7-18) mg/dL Uric Acid 5.8 (2.6-7.2) mg/dL AST 18 (10-42) IU/L ALT 13 (10-60) IU/L Lactate Dehydrogenase 150 (91-180) IU/L Ur Random Creatinine 65 mg/dL U Random Total Protein 23 H (0.00-9.9) mg/dL Protein/Creatinin Ratio 0.35 Result Diagrams: 04/20/17 00:45 04/20/17 00:45 - Problem List (1) Hydronephrosis of fetus in de jesus , antepartum SNOMED Code(s): 824445844, 888677331 ICD Code: O35.8XX0 - MATERNAL CARE FOR OTH ABNORMALITY AND DAMAGE, UNSP Status: Acute Current Visit: Yes (2) Macrosomia affecting management of mother in third trimester SNOMED Code(s): 82599474 ICD Code: O36.63X0 - MATERNAL CARE FOR EXCESS GROWTH, THIRD TRIMESTER, UNSP Status: Acute Current Visit: Yes (3) GBS (group B Streptococcus carrier), +RV culture, currently SNOMED Code(s): 2483141270590, 7539609204483 ICD Code: O99.820 - STREPTOCOCCUS B CARRIER STATE COMPLICATING Status: Acute Current Visit: Yes (4) Impaired glucose tolerance SNOMED Code(s): 1764604 ICD Code: R73.02 - IMPAIRED GLUCOSE TOLERANCE (ORAL) Status: Acute Current Visit: Yes (5) Not immune to rubella SNOMED Code(s): 787245074 ICD Code: Z78.9 - OTHER SPECIFIED HEALTH STATUS Status: Acute Current Visit: Yes Problem List Initiated/Reviewed/Updated: Yes Orders Last 24hrs: Active Orders 24 hr Category Date Time Status Patient Status [ADT] Routine ADT 04/20/17 00:20 Active Communication Order [RC] ASDIRECTED Care 04/20/17 00:20 Active Communication Order [RC] ASDIRECTED Care 04/20/17 00:20 Active Communication Order [RC] ASDIRECTED Care 04/20/17 00:20 Active Communication Order [RC] ASDIRECTED Care 04/20/17 00:20 Active Communication Order [RC] ASDIRECTED Care 04/20/17 00:20 Active Communication Order [RC] ASDIRECTED Care 04/20/17 00:20 Active Heart Tones [RC] PER UNIT ROUTINE Care 04/20/17 00:20 Active Notify Provider Vital Signs OB [RC] ASDIRECTED Care 04/20/17 00:20 Active Notify Provider [RC] PRN Care 04/20/17 00:20 Active Notify Provider [RC] PRN Care 04/20/17 00:20 Active Notify Provider [RC] PRN Care 04/20/17 00:20 Active Notify Provider [RC] STAT Care 04/20/17 00:20 Active Peripheral IV Care [RC] . DIRECTED Care 04/20/17 00:21 Active Pump Management, Intrathecal [RC] ASDIRECTED Care 04/20/17 07:00 Active Up ad Madelin [RC] ASDIRECTED Care 04/20/17 00:20 Active Up ad Madelin [RC] PER UNIT ROUTINE Care 04/20/17 00:20 Active Vaginal Exam [RC] PRN Care 04/20/17 00:20 Active Vital Signs [RC] PER UNIT ROUTINE Care 04/20/17 00:20 Active Regular Diet [DIET] Diet 04/20/17 Breakfast Active Acetaminophen [Tylenol] Med 04/20/17 00:20 Active 650 mg PO Q4H PRN Acetaminophen [Tylenol] Med 04/20/17 00:20 Active 650 mg PO Q4H PRN Carboprost Tromethamine [Hemabate DS] Med 04/20/17 00:20 Active 250 mcg IM ASDIRECTED PRN Lactated Ringers [Ringers, Lactated] 1,000 ml Med 04/20/17 00:30 Active IV ASDIRECTED Lidocaine 1% [Xylocaine-MPF 1%] Med 04/20/17 00:20 Active 10 ml INJECT ASDIRECTED PRN Methylergonovine [Methergine] Med 04/20/17 00:20 Active 0.2 mg IM ASDIRECTED PRN Misoprostol [Cytotec] Med 04/20/17 00:20 Active 25 mcg VAG Q4H PRN Misoprostol [Cytotec] Med 04/20/17 00:20 Active 800 mcg RECTAL ASDIRECTED PRN Nalbuphine [Nubain] Med 04/20/17 07:00 Once 20 mg IVPUSH ONETIME ONE Ondansetron [Zofran] Med 04/20/17 00:20 Active 4 mg IV Q4H PRN Oxytocin/Normal Saline [Pitocin in NS 30 UNIT/500 ML] Med 04/20/17 00:30 Active 30 unit in 500 ml IV TITRATE Penicillin G Potassium [Pfizerpen] 3 millunits Med 04/20/17 04:00 Active Sodium Chloride 0.9% [Normal Saline] 100 ml IV Q4H Sodium Chloride 0.9% [Saline Flush] Med 04/20/17 00:20 Active 10 ml FLUSH ASDIRECTED PRN Tranexamic Acid [Cyklokapron] 1,000 mg Med 04/20/17 00:20 Active Sodium Chloride 0.9% [Normal Saline] 100 ml IV ONETIME hydrOXYzine HCl [Atarax] Med 04/20/17 00:32 Active 50 mg PO ONETIME PRN PIH Panel [OM.PC] Urgent Oth 04/20/17 00:20 Ordered Peripheral IV Insertion Adult [OM.PC] Urgent Oth 04/20/17 00:20 Ordered Saline Lock Insert [OM.PC] Routine Oth 04/20/17 00:20 Ordered Resuscitation Status Routine Resus Stat 04/20/17 00:20 Ordered Medication Orders Acetaminophen (Tylenol) 650 mg PO Q4H PRN PRN Reason: Pain (Mild 1-3) and fever Acetaminophen (Tylenol) 650 mg PO Q4H PRN PRN Reason: Pain/Fever Carboprost Tromethamine (Hemabate Ds) 250 mcg IM ASDIRECTED PRN PRN Reason: HEMORRHAGE Hydroxyzine HCl (Atarax) 50 mg PO ONETIME PRN PRN Reason: Sleep Last Admin: 04/20/17 01:17 Dose: 50 mg Lactated Ringer's (Ringers, Lactated) 1,000 mls @ 125 mls/hr IV ASDIRECTED NAYELI Oxytocin/Sodium Chloride (Pitocin In Ns 30 Unit/500 Ml) 30 unit in 500 mls @ 2 mls/hr IV TITRATE NAYELI; 2 MUNITS/MIN PRN Reason: Protocol Penicillin G Potassium 3 (millunits/ Sodium Chloride) 100 mls @ 200 mls/hr IV Q4H NAYELI Tranexamic Acid 1,000 mg/ (Sodium Chloride) 110 mls @ 660 mls/hr IV ONETIME PRN PRN Reason: Bleeding Lidocaine HCl (Xylocaine-Mpf 1%) 10 ml INJECT ASDIRECTED PRN PRN Reason: Perineal Repair Methylergonovine Maleate (Methergine) 0.2 mg IM ASDIRECTED PRN PRN Reason: Hemorrhage Misoprostol (Cytotec) 800 mcg RECTAL ASDIRECTED PRN PRN Reason: Hemorrhage Misoprostol (Cytotec) 25 mcg VAG Q4H PRN PRN Reason: cervical ripening Last Admin: 04/20/17 01:17 Dose: 25 mcg Nalbuphine HCl (Nubain) 20 mg IVPUSH ONETIME ONE Stop: 04/20/17 07:01 Ondansetron HCl (Zofran) 4 mg IV Q4H PRN PRN Reason: Nausea/Vomiting Sodium Chloride (Saline Flush) 10 ml FLUSH ASDIRECTED PRN PRN Reason: Keep Vein Open Assessment/Plan Comment:: 1. Admit to L&D. Patient's cervix was initially assessed by Dr. Zaldivar 2. Cytotec for cervical ripening 3. Pitocin and AROM as needed for labor augmentation 4. Will start PCN for GBS positive status when in labor 5. Patient does desire pain medication. 6. Expectant management. Sandra Raphael MD
[2017-04-20] MEDS ORDERED: Nalbuphine 20 MG/1 ML Amp IVPUSH ONE (07:00)
[2017-04-20] MEDS: Penicillin G Potassium 3 MILLUNITS in Sodium Chloride 0.9% 100 ML IV SCH ×2 (17:19→22:12)
[2017-04-20] MEDS: Lactated Ringers 1,000 ML IV SCH (20:47)
[2017-04-20] MEDS ORDERED: Nalbuphine 20 MG/1 ML Amp IM PRN (21:48)
[2017-04-20] MEDS: Oxytocin/Normal Saline 30 UNIT/500 ML BAG IV SCH (23:45)
[2017-04-21] MEDS ORDERED: Labetalol 20 MG/4 ML Syringe IVPUSH ONE (00:23)
[2017-04-21] MEDS: Penicillin G Potassium 3 MILLUNITS in Sodium Chloride 0.9% 100 ML IV SCH ×4 (00:45→13:53)
[2017-04-21] MEDS: Lactated Ringers 1,000 ML IV SCH ×5 (04:40→23:13)
[2017-04-21] MEDS ORDERED: fentaNYL 100 MCG/2 ML SDV ONE (04:56)
[2017-04-21] MEDS ORDERED: Bupivacaine 0.75%/D5W 2 ML Amp ONE (04:56)
[2017-04-21] MEDS ORDERED: EPINEPHrine 1 MG/ML SDV ONE (04:57)
--- NOTE | 2017-04-21 05:44 | PCM.PRNOTE ---
- Free Text/Narrative Note: Requested to provide analgesia to full term patient in severe pain. Upon entering the room, patient is supine in bed complaining of severe abdominal/ pelvic pain and discomfort. Procedure was discussed with patient including adverse outcomes and expectations. Pt consented to analgesia, SAB/IT. Pt placed into a sitting position. Landmarks for SAB/IT were identified and marked. Back was prepped with betadine x3. A sterile, transparent, fenestrated drape was applied. Excess betadine was removed. Using 3 mL of a 1% lidocaine solution, a skin wheel was placed at the L3/L4 interspace. A 24 ga (6 inch) Pencan spinal needle was inserted until positive for CSF. Negative for heme or paresthesias. Injected fentanyl 20 mcg, sufentanil 10 mcg, and 11.25 mg of a 0.75% bupivacaine solution with an epi wash. Pt was placed left lateral position for approximately 20 minutes. There were zero complications or adverse outcomes. Will continue to monitor.
--- NOTE | 2017-04-21 09:41 | PCM.PNLD ---
Labor Progress Note - VS & Meds Vital Signs: Last Vital Signs Temp 37.4 C 04/21/17 07:45 Pulse 63 04/21/17 07:45 Resp 16 04/21/17 07:45 BP 149/73 H 04/21/17 07:45 Pulse Ox 96 04/21/17 07:45 Active Medications: Current Medications Acetaminophen (Tylenol) 650 mg PO Q4H PRN PRN Reason: Pain (Mild 1-3) and fever Acetaminophen (Tylenol) 650 mg PO Q4H PRN PRN Reason: Pain/Fever Carboprost Tromethamine (Hemabate Ds) 250 mcg IM ASDIRECTED PRN PRN Reason: HEMORRHAGE Hydroxyzine HCl (Atarax) 50 mg PO ONETIME PRN PRN Reason: Sleep Last Admin: 04/20/17 01:17 Dose: 50 mg Lactated Ringer's (Ringers, Lactated) 1,000 mls @ 125 mls/hr IV ASDIRECTED NAYELI Last Admin: 04/21/17 05:19 Dose: 125 mls/hr Oxytocin/Sodium Chloride (Pitocin In Ns 30 Unit/500 Ml) 30 unit in 500 mls @ 2 mls/hr IV TITRATE NAYELI; 2 MUNITS/MIN PRN Reason: Protocol Last Titration: 04/21/17 09:05 Dose: 16 munits/min, 16 mls/hr Penicillin G Potassium 3 (millunits/ Sodium Chloride) 100 mls @ 200 mls/hr IV Q4H NAYELI Last Admin: 04/21/17 08:38 Dose: 150 mls/hr Tranexamic Acid 1,000 mg/ (Sodium Chloride) 110 mls @ 660 mls/hr IV ONETIME PRN PRN Reason: Bleeding Lidocaine HCl (Xylocaine-Mpf 1%) 10 ml INJECT ASDIRECTED PRN PRN Reason: Perineal Repair Methylergonovine Maleate (Methergine) 0.2 mg IM ASDIRECTED PRN PRN Reason: Hemorrhage Misoprostol (Cytotec) 800 mcg RECTAL ASDIRECTED PRN PRN Reason: Hemorrhage Misoprostol (Cytotec) 25 mcg VAG Q4H PRN PRN Reason: cervical ripening Last Admin: 04/20/17 18:40 Dose: 25 mcg Ondansetron HCl (Zofran) 4 mg IV Q4H PRN PRN Reason: Nausea/Vomiting Last Admin: 04/21/17 04:42 Dose: 4 mg Sodium Chloride (Saline Flush) 10 ml FLUSH ASDIRECTED PRN PRN Reason: Keep Vein Open Discontinued Medications Bupivacaine HCl/Dextrose (Marcaine 0.75% Spinal) Confirm Administered Dose 2 ml .ROUTE .STK-MED ONE Stop: 04/21/17 04:57 Last Admin: 04/21/17 08:41 Dose: Not Given Epinephrine HCl (Adrenalin) Confirm Administered Dose 1 mg .ROUTE .STK-MED ONE Stop: 04/21/17 04:58 Last Admin: 04/21/17 08:42 Dose: Not Given Fentanyl (Sublimaze) Confirm Administered Dose 100 mcg .ROUTE .STK-MED ONE Stop: 04/21/17 04:57 Last Admin: 04/21/17 08:41 Dose: Not Given Lactated Ringer's (Ringers, Lactated) 500 mls @ 999 mls/hr IV .BOLUS ONE Stop: 04/20/17 00:50 Penicillin G Potassium 5 (millunits/ Sodium Chloride) 100 mls @ 200 mls/hr IV ONETIME ONE Stop: 04/20/17 00:29 Last Admin: 04/20/17 20:48 Dose: 200 mls/hr Labetalol HCl (Normodyne) 20 mg IVPUSH NOW ONE PRN Reason: Protocol Stop: 04/21/17 00:24 Last Admin: 04/21/17 00:36 Dose: 20 mg Lidocaine HCl (Xylocaine-Mpf 1%) Confirm Administered Dose 5 ml .ROUTE .STK-MED ONE Stop: 04/21/17 04:58 Nalbuphine HCl (Nubain) 20 mg IVPUSH ONETIME ONE Stop: 04/20/17 07:01 Last Admin: 04/21/17 09:05 Dose: Not Given Nalbuphine HCl (Nubain) 20 mg IM ONETIME PRN PRN Reason: Pain Last Admin: 04/21/17 01:46 Dose: 20 mg Sufentanil Citrate (Sufenta) Confirm Administered Dose 50 mcg .ROUTE .STK-MED ONE Stop: 04/21/17 04:58 Last Admin: 04/21/17 08:42 Dose: Not Given - Uterine Contractions Uterine Monitoring Mode: External [place] Contraction Frequency (min): 1-4 Contraction Duration (sec): 40-80 Contraction Intensity: Moderate to Strong Uterine Resting Tone: Soft - Monitoring Heart Rate (FHR) Variability: Moderate (6-25 bmp) Accelerations: Present, 15x15 Decelerations: None - Vaginal Exam Dilation (cm): 10 Effacement (Percent): 100 Station: 2 Cervical Position: Midposition Sterile Vaginal Exam Performed By: Sandra Raphael Vaginal Exam Comment: caput felt - Labor Progress (Free Text) Labor Progress: Patient had spontaneous rupture of membranes at 2014 last night. Labor has progressed well. She received an intrathecal around 0500 this morning. At the time of her exam she was noted to be completely dilated. An attempt was made to push. However, patient is still to know from intrathecal. We'll plan to let her labor down for 30-60 minutes then restarted pushing. Sandra Raphael MD
[2017-04-21] MEDS ORDERED: ceFAZolin 2 GM in Premix Bag 1 BAG IV ONE (11:21)
[2017-04-21] MEDS ORDERED: Citric Acid/Sodium Citrate Solution 30 ML Cup PO ONE (11:21)
[2017-04-21] MEDS ORDERED: Oxytocin/Normal Saline 30 UNIT/500 ML BAG ONE (11:40)
[2017-04-21] MEDS ORDERED: Bupivacaine 0.5% 10 ML SDV ONE (13:09)
[2017-04-21] MEDS ORDERED: diphenhydrAMINE 50 MG/ML SDV IVPUSH PRN (13:10)
[2017-04-21] MEDS ORDERED: Bupivacaine 0.5% 10 ML SDV INFILT ONE (13:10)
[2017-04-21] MEDS ORDERED: Naloxone 2 MG/2 ML Syringe IVPUSH PRN (13:10)
[2017-04-21] MEDS ORDERED: Acetaminophen/oxyCODONE 325-5 MG Tab PO PRN (13:10)
[2017-04-21] MEDS ORDERED: ePHEDrine 50 MG/ML SDV IVPUSH PRN (13:10)
--- NOTE | 2017-04-21 13:10 | PCM.DEL ---
L & D Note - General Info Mother's Due Date: 04/25/17 - Delivery Note Labor: Augmented by Oxytocin Cervical Ripening Method: Misoprostil Delivery Outcome: Livebirth Infant Delivery Method: Primary Presentation: Vertex Nuchal Cord: None Anesthesia Type: Spinal, Intrathecal Amniotic Fluid Description: Meconium Stained Placenta: Intact Cord: 3 Vessels Estimated Blood Loss: 1,100 Resuscitation Needed: Yes [place]: Bulb Syringe, Stimulated, Warmed, [place] Used, Warmer Used Provider: Sandra Raphael Score 1 min: 9 Score 5 min: 9 Post Delivery Events: Unplanned Delivery Comments (Free Text/Narrative):: Patient was induced at 39w2d for impaired glucose tolerance and LGA. She received 3 doses of Cytotec for cervical ripening. At 2014 last night, she SROM 'd for meconium stained fluid. Pitocin was started for labor augmentation. Patient progressed to complete dilation at 0830 today. She had received and intrathecal at 0500 so labored down until she was able to feel contractions. Patient then pushed for 1 hour 45 minutes with essentially no progress. Due to lack of progress and LGA, the decision was made not proceed with vacuum delivery. The decision was made to proceed with primary section. Please see Dr. Royal's procedure note for details of the section. - Patient Data Vitals - Most Recent: Last Vital Signs Temp 37.4 C 04/21/17 07:45 Pulse 63 04/21/17 07:45 Resp 16 04/21/17 07:45 BP 149/73 H 04/21/17 07:45 Pulse Ox 96 04/21/17 07:45 Weight - Most Recent: 140.614 kg Lab Results Last 24 Hours: Laboratory Results - last 24 hr 04/21/17 04/21/17 04/21/17 Range/Units 00:30 00:30 00:30 WBC 11.3 H (5.0-10.0) 10^3/uL RBC 4.89 (4.2-5.4) 10^6/uL Hgb 13.3 (12.0-16.0) g/dL Hct 39.8 (37.0-47.0) % MCV 81.4 (80-100) fL MCH 27.2 (27.0-34.0) pg MCHC 33.4 (33.0-35.0) g/dL Plt Count 276 (150-450) 10^3/uL BUN 13 (7-18) mg/dL Uric Acid 6.2 (2.6-7.2) mg/dL AST 19 (10-42) IU/L ALT 14 (10-60) IU/L Lactate Dehydrogenase 152 (91-180) IU/L Creatine Kinase 68 (26-174) IU/L Blood Type A POSITIVE Gel Antibody Screen Negative Med Orders - Current: Current Medications Acetaminophen (Tylenol) 650 mg PO Q4H PRN PRN Reason: Pain (Mild 1-3) and fever Acetaminophen (Tylenol) 650 mg PO Q4H PRN PRN Reason: Pain/Fever Carboprost Tromethamine (Hemabate Ds) 250 mcg IM ASDIRECTED PRN PRN Reason: HEMORRHAGE Hydroxyzine HCl (Atarax) 50 mg PO ONETIME PRN PRN Reason: Sleep Last Admin: 04/20/17 01:17 Dose: 50 mg Lactated Ringer's (Ringers, Lactated) 1,000 mls @ 125 mls/hr IV ASDIRECTED NAYELI Last Admin: 04/21/17 11:42 Dose: 125 mls/hr Oxytocin/Sodium Chloride (Pitocin In Ns 30 Unit/500 Ml) 30 unit in 500 mls @ 2 mls/hr IV TITRATE NAYELI; 2 MUNITS/MIN PRN Reason: Protocol Last Titration: 04/21/17 09:05 Dose: 16 munits/min, 16 mls/hr Penicillin G Potassium 3 (millunits/ Sodium Chloride) 100 mls @ 200 mls/hr IV Q4H NAYELI Last Admin: 04/21/17 08:38 Dose: 150 mls/hr Tranexamic Acid 1,000 mg/ (Sodium Chloride) 110 mls @ 660 mls/hr IV ONETIME PRN PRN Reason: Bleeding Lidocaine HCl (Xylocaine-Mpf 1%) 10 ml INJECT ASDIRECTED PRN PRN Reason: Perineal Repair Methylergonovine Maleate (Methergine) 0.2 mg IM ASDIRECTED PRN PRN Reason: Hemorrhage Misoprostol (Cytotec) 800 mcg RECTAL ASDIRECTED PRN PRN Reason: Hemorrhage Misoprostol (Cytotec) 25 mcg VAG Q4H PRN PRN Reason: cervical ripening Last Admin: 04/20/17 18:40 Dose: 25 mcg Ondansetron HCl (Zofran) 4 mg IV Q4H PRN PRN Reason: Nausea/Vomiting Last Admin: 04/21/17 04:42 Dose: 4 mg Sodium Chloride (Saline Flush) 10 ml FLUSH ASDIRECTED PRN PRN Reason: Keep Vein Open Discontinued Medications Bupivacaine HCl/Dextrose (Marcaine 0.75% Spinal) Confirm Administered Dose 2 ml .ROUTE .STK-MED ONE Stop: 04/21/17 04:57 Last Admin: 04/21/17 08:41 Dose: Not Given Citric Acid/Sodium Citrate (Bicitra Solution) 30 ml PO ONETIME ONE Stop: 04/21/17 11:22 Last Admin: 04/21/17 11:41 Dose: 30 ml Epinephrine HCl (Adrenalin) Confirm Administered Dose 1 mg .ROUTE .STK-MED ONE Stop: 04/21/17 04:58 Last Admin: 04/21/17 08:42 Dose: Not Given Fentanyl (Sublimaze) Confirm Administered Dose 100 mcg .ROUTE .STK-MED ONE Stop: 04/21/17 04:57 Last Admin: 04/21/17 08:41 Dose: Not Given Lactated Ringer's (Ringers, Lactated) 500 mls @ 999 mls/hr IV .BOLUS ONE Stop: 04/20/17 00:50 Penicillin G Potassium 5 (millunits/ Sodium Chloride) 100 mls @ 200 mls/hr IV ONETIME ONE Stop: 04/20/17 00:29 Last Admin: 04/20/17 20:48 Dose: 200 mls/hr Cefazolin Sodium/Dextrose 2 gm (/ Premix) 50 mls @ 100 mls/hr IV ONETIME ONE Stop: 04/21/17 11:50 Oxytocin/Sodium Chloride (Pitocin In Ns 30 Unit/500 Ml) Confirm Administered Dose 30 unit in 500 mls @ as directed .ROUTE .STK-MED ONE Stop: 04/21/17 11:41 Labetalol HCl (Normodyne) 20 mg IVPUSH NOW ONE PRN Reason: Protocol Stop: 04/21/17 00:24 Last Admin: 04/21/17 00:36 Dose: 20 mg Lidocaine HCl (Xylocaine-Mpf 1%) Confirm Administered Dose 5 ml .ROUTE .STK-MED ONE Stop: 04/21/17 04:58 Nalbuphine HCl (Nubain) 20 mg IVPUSH ONETIME ONE Stop: 04/20/17 07:01 Last Admin: 04/21/17 09:05 Dose: Not Given Nalbuphine HCl (Nubain) 20 mg IM ONETIME PRN PRN Reason: Pain Last Admin: 04/21/17 01:46 Dose: 20 mg Sufentanil Citrate (Sufenta) Confirm Administered Dose 50 mcg .ROUTE .STK-MED ONE Stop: 04/21/17 04:58 Last Admin: 04/21/17 08:42 Dose: Not Given - Problem List & Annotations (1) Hydronephrosis of fetus in de jesus , antepartum SNOMED Code(s): 187481153, 523851248 Code(s): O35.8XX0 - MATERNAL CARE FOR OTH ABNORMALITY AND DAMAGE, UNSP Status: Acute Current Visit: Yes (2) Macrosomia affecting management of mother in third trimester SNOMED Code(s): 72383255 Code(s): O36.63X0 - MATERNAL CARE FOR EXCESS GROWTH, THIRD TRIMESTER, UNSP Status: Acute Current Visit: Yes (3) GBS (group B Streptococcus carrier), +RV culture, currently SNOMED Code(s): 7847384932799, 3461929487646 Code(s): O99.820 - STREPTOCOCCUS B CARRIER STATE COMPLICATING Status: Acute Current Visit: Yes (4) Impaired glucose tolerance SNOMED Code(s): 4567707 Code(s): R73.02 - IMPAIRED GLUCOSE TOLERANCE (ORAL) Status: Acute Current Visit: Yes (5) Not immune to rubella SNOMED Code(s): 186357193 Code(s): Z78.9 - OTHER SPECIFIED HEALTH STATUS Status: Acute Current Visit: Yes - Problem List Review Problem List Initiated/Reviewed/Updated: Yes - My Orders Last 24 Hours: My Active Orders 04/21/17 11:21 Schedule Procedure [COMM] Per Unit Routine 04/21/17 Lunch Nothing Per Oral Diet [DIET] - Assessment Assessment:: 32-year-old now status post primary section for failure to progress in the 2nd stage of labor - Plan Plan:: 1. Initiate routine postoperative cares 2. Due to over 1000 mL of blood loss, will check CBC 8 hours after delivery 3. Plans to breastfeed 4. Anticipate discharge 04/24/17 Sandra Raphael MD
[2017-04-21] MEDS: Oxytocin/Normal Saline 30 UNIT/500 ML BAG IV SCH ×2 (14:39→14:47)
[2017-04-21] MEDS: Simethicone 80 MG Tab.Chew PO SCH ×2 (18:10→22:13)
[2017-04-21] MEDS: Ketorolac 30 MG/ML SDV IVPUSH SCH (18:20)
[2017-04-21] MEDS: Docusate Sodium 100 MG Cap PO PRN (22:14)
[2017-04-22] MEDS: Ketorolac 30 MG/ML SDV IVPUSH SCH ×2 (01:04→06:38)
[2017-04-22] MEDS ORDERED: Furosemide 40 MG/4 ML VIAL IVPUSH ONE (01:34)
[2017-04-22] MEDS: Lactated Ringers 1,000 ML IV SCH (06:39)
--- NOTE | 2017-04-22 08:52 | OR ---
DATE: 04/21/2017 LOCATION: [facility]. PREOPERATIVE DIAGNOSES: 1. Term with failure to progress in labor. 2. Meconium-stained fluid. 3. Macrosomic baby. 4. Morbid obesity. OPERATION PERFORMED: Primary section, low transverse. POSTOPERATIVE DIAGNOSES: 1. Term with failure to progress in labor. 2. Meconium-stained fluid. 3. Macrosomic baby. 4. Morbid obesity. 5. Intraoperative hemorrhage with estimated blood loss approximately 1200 mL. ANESTHESIA: Spinal. ESTIMATED BLOOD LOSS: 1200 mL with intraoperative hemorrhage. DESCRIPTION OF PROCEDURE: After the induction of satisfactory regional anesthesia and with the abdomen routinely prepped and draped in the usual position and also with using elevation of the pannus, a Pfannenstiel incision was made in the skin. This was carried down through the deeper layers with the clean knife, and the peritoneum was now entered in the usual fashion. The bladder blade was put in place, and the uterus was very deep in the pelvis because of her obesity. The bladder flap was carefully swept inferiorly and then a low transverse uterine incision was made. This was carefully extended bilaterally with the bandage scissors, and once again exposure was somewhat difficult because of the extra weight. Now, the baby girl was delivered from the vertex presentation without difficulty. She was immediately suctioned upon delivery, and the scores were 9 and 9 and the weight was later reported as a 9 pound 3 ounce baby girl. A sample of cord blood was obtained, and the placenta was manually delivered from the uterine cavity, and the uterine cavity was carefully wiped clean with moist laparotomy sponges. The first layer of the uterus was closed with 0 Vicryl continuous interlocking sutures. Once again, it was somewhat difficult to get exposure deep down to the incisional area. At one time, part of the rectus muscle was in the way or incorporated with 1 or 2 of our sutures and then this was freed up and released and permitted us to continue with the closure of the uterus better. Now, a 2nd Lembert imbricating layer was placed on top of this. There was some extra bleeding noted in each right and left uterine incisional angle area, and several [id number] sutures were placed out laterally, but being very, very careful to not violate the underlying ureter. This was carefully palpated and inspected, and the ureters were free from our sutures. There was an abundant amount of brisk bleeding as mentioned above that was coming from the left and right angle areas as well as from the primary uterine incision itself. Finally, the area was hemostatic and then carefully reinspected again. I did see one area where it was still oozing or bleeding somewhat on the right side, and one extra interrupted suture was placed out in the right angle area. Now, the pelvis was finally hemostatic. The pelvis was copiously irrigated with normal saline on numerous different occasions and then carefully wiped dry. Tubes and ovaries and uterus otherwise had a normal appearance. Pelvis was again reinspected very, very carefully and thoroughly and no further bleeding was seen. Pelvis was irrigated one more time and then suctioned dry. The urinary output remained adequate and clear at all times. Now, the bladder flap nicely reapproximated on its own without suturing. Now, using 3-hole plain gut on a large needle, the peritoneum and rectus fascia were carefully reapproximated using 2 or 3 interrupted sutures. The rectus fascia was now identified, and this was closed with 0 Vicryl continuous suturing using a separate strand of sutures for the left and right sides of the incision respectively. The deep and thick subcutaneous space was now irrigated again copiously with normal saline and suctioned dry. Then, this area was closed with 3-0 plain gut continuous suturing. Just before the ehsan were applied to the skin, the subcutaneous tissues were infiltrated with 0.5% Marcaine for extra analgesic support. Ehsan were now applied to the skin. The needle, sponge, and instrument count had definitely been reported as correct. Estimated blood loss was approximately 1200 mL from this intraoperative hemorrhage. Ehsan were applied to the skin. A sterile dressing was applied. Urinary output remained clear and adequate at all times as mentioned above. Because of her brisk bleeding during this case, I did give her 1 g of tranexamic acid or TXA IV. The patient will be observed very closely in the recovery room and in the postoperative period. The patient remained stable at all times in the operating room, however. [facility] /[id number]
[2017-04-22] MEDS: Prenatal Multivitamin with Calcium/Folic Acid/Iron Tab PO SCH (10:29)
[2017-04-22] MEDS: Ferrous Sulfate 325 MG Tab PO SCH (10:29)
[2017-04-22] MEDS: Simethicone 80 MG Tab.Chew PO SCH ×4 (10:29→21:28)
--- NOTE | 2017-04-22 11:49 | PN ---
DATE: 04/22/2017 SUBJECTIVE: Postop day #1, status post primary low transverse section. No concerns per nursing staff. The patient does note lower abdominal pain that is mostly well controlled on current medications. She has no other concerns. She is ambulating and is tolerating a clear liquid diet. She denies lightheadedness or dizziness, fevers or chills, shortness of breath or chest pain, sharp abdominal pain, headaches or blurry vision, nausea or vomiting, or redness or tenderness in any extremity. She has not passed gas or had a bowel movement, and notes moderate lochia. Her Eng catheter is in place. Incision dressing removed by nursing staff as it was not sticking. OBJECTIVE: Vital signs: Temperature 97.8, heart rate 67, blood pressure 124/70, respiratory rate 18, oxygen saturation 98%. General: Pleasant, in no acute distress. Heart: Regular rate and rhythm. S1 and S2. Lungs: Clear to auscultation bilaterally with normal respiratory effort. Abdomen: Obese, soft, nondistended. The uterus is firm and minimally tender to palpation. The incision appears intact without edema, erythema, or drainage. Neurologic: No obvious neurologic deficits. Extremities: Edema noted in the lower extremities bilaterally. No tenderness to palpation of her calves. Skin: Warm, dry, and well perfused. LABORATORY DATA: Last drawn yesterday evening, revealed white blood cells 18.2, hemoglobin 9.6, and platelets 255. ASSESSMENT: 1. Postop day #1, status post primary low-transverse section. 2. Intrauterine at 39 and 3/7th weeks gestation, delivered. 3. Hydronephrosis of fetus in de jesus , antepartum. 4. Macrosomia, affecting management of mother in third trimester. 5. Group B streptococcus positive. 6. Impaired glucose tolerance. 7. Not immune to rubella. 8. hemorrhage. 9. Maternal anemia, asymptomatic. PLAN: Continue routine and postoperative cares. The patient will be advanced to a general diet this morning. Please see orders for further details. Ambulation was encouraged, and the Eng catheter will be removed today. The plan has been discussed with the patient and she expressed understanding and is in agreement. We will continue to follow closely and anticipate discharge in 2 days, on April 24. The history, physical, assessment and plan are per Dr. Raphael and this note is being scribed for Dr. Raphael. [facility] /[id number] MTDSammie
[2017-04-22] MEDS: Acetaminophen/oxyCODONE 325-5 MG Tab PO PRN ×2 (15:50→21:29)
[2017-04-22] MEDS: Ibuprofen 800 MG Tab PO PRN (15:51)
[2017-04-22] MEDS ORDERED: fentaNYL 100 MCG/2 ML SDV ITHECAL ONE (16:07)
[2017-04-22] MEDS ORDERED: EPINEPHrine 1 MG/ML SDV ONE (16:07)
[2017-04-22] MEDS ORDERED: Bupivacaine 0.75%/D5W 2 ML Amp ONE (16:07)
[2017-04-22] MEDS: Docusate Sodium 100 MG Cap PO PRN (21:29)
[2017-04-23] MEDS: Ibuprofen 800 MG Tab PO PRN ×3 (00:54→17:27)
[2017-04-23] MEDS: Acetaminophen/oxyCODONE 325-5 MG Tab PO PRN ×6 (00:55→22:15)
[2017-04-23] MEDS: Prenatal Multivitamin with Calcium/Folic Acid/Iron Tab PO SCH (09:21)
[2017-04-23] MEDS: Simethicone 80 MG Tab.Chew PO SCH ×4 (09:21→21:16)
[2017-04-23] MEDS: Ferrous Sulfate 325 MG Tab PO SCH (09:24)
[2017-04-23] MEDS: Docusate Sodium 100 MG Cap PO PRN ×2 (09:24→21:16)
[2017-04-23] MEDS ORDERED: Measles, Mumps & Rubella Vaccine 0.5 ML SDV SUBCUT ONE (09:30)
--- NOTE | 2017-04-23 09:41 | PN ---
DATE: 04/23/2017 SUBJECTIVE: Postop day #2, status post primary low transverse section. No concerns per nursing staff. The patient does note lower abdominal pain that is mostly well controlled on current medications with no other concerns. She is ambulating and tolerating a general diet. She denies lightheadedness or dizziness, fevers or chills, shortness of breath or chest pain, sharp abdominal pains, headaches or blurry vision, nausea or vomiting, or redness or tenderness in any extremity. She is passing gas but has not had a bowel movement. She is voiding without difficulty and notes mild lochia that is improving. OBJECTIVE: Vital Signs: Temperature 98.2 Fahrenheit, heart rate 65, blood pressure 115/66, respiratory rate 18, and oxygen saturation 98% on room air. General: Pleasant, in no acute distress. Heart: Regular rate and rhythm. S1 and S2. Lungs: Clear to auscultation bilaterally with normal respiratory effort. Abdomen: Obese, soft, and nondistended. Uterus firm. Incision without dressing appears intact without edema, erythema, or drainage. Extremities: No erythema or tenderness in any extremity. Edema noted in the lower extremities bilaterally. Skin: Warm, dry, and well perfused. LABORATORY DATA: Laboratory data drawn yesterday at 1:40 p.m. reveals white blood cell count 11.7, hemoglobin 9.4, and platelets 259. ASSESSMENT: 1. Postop day #2, status post primary low transverse section. 2. Intrauterine at 39 and 3/7 weeks' gestation, delivered. 3. Hydronephrosis of fetus in de jesus , antepartum. 4. Macrosomia, affecting management of mother in the third trimester. 5. Group B streptococcus positive. 6. Impaired glucose tolerance. 7. Nonimmune to rubella. 8. hemorrhage. 9. Maternal anemia, asymptomatic. PLAN: Continue routine and postoperative cares. Will put in order for MMR vaccine. Please see orders for further details. The plan has been discussed with the patient. She expressed understanding and is in agreement. We will continue to follow closely and anticipate discharge tomorrow, April 24, 2017. The history, physical, and assessment and plan are per Dr. Raphael; and this note is being scribed for Dr. Raphael. [facility] /[id number] Agree with the student assessment and plan. Patient was examined by me, and assessment and plan are per my recommendations. Any changes above were made by me to reflect my observations and recommendations. Patient is doing well. Anticipate discharge 04/24/2017. Sandra Raphael MD [facility]
[2017-04-23] MEDS ORDERED: Bupivacaine 0.75%/D5W 2 ML Amp INJECT ONE (15:35)
[2017-04-23] MEDS ORDERED: Morphine PF 1 MG/ML Amp ONE (15:35)
[2017-04-23] MEDS ORDERED: Ketorolac 30 MG/ML SDV IVPUSH ONE (15:35)
[2017-04-24] MEDS: Acetaminophen/oxyCODONE 325-5 MG Tab PO PRN ×2 (02:19→06:32)
[2017-04-24] MEDS: Ibuprofen 800 MG Tab PO PRN (06:32)
[2017-04-24 08:21] VITALS: BP 137/76
[2017-04-24] MEDS: Docusate Sodium 100 MG Cap PO PRN (08:40)
[2017-04-24] MEDS: Prenatal Multivitamin with Calcium/Folic Acid/Iron Tab PO SCH (08:40)
[2017-04-24] MEDS: Ferrous Sulfate 325 MG Tab PO SCH (08:40)
[2017-04-24] MEDS: Simethicone 80 MG Tab.Chew PO SCH (08:40)
--- NOTE | 2017-04-24 09:29 | DISCH ---
ADMIT DIAGNOSES: 1. Intrauterine at 39 and 3/7 weeks' gestation. 2. Hydronephrosis of fetus in de jesus , antepartum. 3. Macrosomia, affecting management of mother in third trimester. 4. Group B streptococcus positive. 5. Impaired glucose tolerance. 6. Nonimmune to rubella. 7. G1, P0. DISCHARGE DIAGNOSES: 1. Intrauterine at 39 and 3/7 weeks' gestation. Delivered via primary low transverse section. 2. Hydronephrosis of fetus in de jesus , antepartum. 3. Macrosomia, affecting management of mother in third trimester. 4. Group B streptococcus positive. 5. Impaired glucose tolerance. 6. Nonimmune to rubella. 7. hemorrhage. 8. Maternal anemia, asymptomatic. 9. G1, P1. PROCEDURE PERFORMED: Induction of labor followed by primary low-transverse section per Dr. Royal. ANESTHESIA: The patient did receive an intrathecal in the first stage of labor and spinal anesthesia during her section. HISTORY OF PRESENT ILLNESS: Please see H and P. SUMMARY OF HOSPITAL COURSE: The patient was admitted on the above date with the above diagnoses, and after a failed trial of labor due to macrosomia and maternal fatigue, underwent a primary low transverse section yielding a female infant, scores 9 and 9, weighing 4175 g, 9 pounds 3 ounces with an EBL of 1200 mL, under spinal anesthesia. Postoperative day #1 and #2, please see progress note. Postoperative day #3, the date of discharge, this patient was tolerating p.o., ambulating, urinating without difficulty, and passing flatus. No bowel movement yet. She notes some lower abdominal pain that is well controlled on current medications. She denies lightheadedness or dizziness, fevers or chills, shortness of breath or chest pain, sharp abdominal pains, headaches or blurry vision, nausea or vomiting, or erythema or tenderness in any extremity. She notes mild lochia that continues to improve. PHYSICAL EXAMINATION: Vital Signs: Temperature 99.2, heart rate 72, blood pressure 137/76, respiratory rate 20, oxygen saturation 98% on room air. General: Pleasant, in no acute distress. Heart: Regular rate and rhythm. S1 and S2. 2/6 holosystolic flow murmur auscultated at the left upper sternal border. Lungs: Clear to auscultation bilaterally with normal respiratory effort. Abdomen: Obese, soft, and nondistended. Uterus is firm and minimally tender to palpation. Incision covered with padded dressing that is clean, dry, and intact. Extremities: No erythema or tenderness in any extremity. Edema in the lower extremities bilaterally. Skin: Warm, dry, and well perfused. LABORATORY DATA: Last drawn 2 days prior to discharge, reveals white blood cells 11.7, hemoglobin 9.4, and platelet count 259. CONDITION ON DISCHARGE COMPARED TO CONDITION ON ADMISSION: Improved. DISCHARGE INSTRUCTIONS: 1. Diet: As tolerated. 2. Activity: No lifting more than 20 pounds, no sit-ups, straining, and pelvic rest for the next 6 weeks with immediate return to fertility was discussed with the patient. 3. Reasons to return or go to the emergency room were discussed with the patient in detail including but not limited to temperature greater than 100.4, foul-smelling discharge, red hot tender breasts, increased vaginal bleeding, or increasing pain, drainage, or redness around the incision. DISCHARGE MEDICATIONS: 1. Over the counter Tylenol or ibuprofen as needed for pain. 2. Iron sulfate 325 b.i.d. x6 weeks. 3. vitamins x6 weeks. 4. Percocet 5/325 one to two q.6 hours p.r.n. #30, no refills. It was discussed with the patient in the interim reasons to return or go to the emergency room and in regard for her infant, including but not limited to temperature greater than 100.4, increased work of breathing or turning blue around the lips. Followup for both of them has been scheduled in 3 days for Thursday, April 27, 2017 for staple removal for mother and well-child check for baby. The patient expressed understanding and agrees with the above treatment plan. The history, physical, assessment and plan are per Dr. Raphael. This note is being scribed for Dr. Raphael. [facility] /[id number] Agree with student assessment and plan. Patient was examined by me, and the assessment and plan are per my recommendations. Any changes above were made to reflect my observations and recommendations. Patient will be discharged today in good condition. She will follow-up with me in 04/27/2017 for incision check and staple removal. Sandra Raphael MD [facility]
== END 2017-04-24 11:50 | disposition home or self-care (01) | DRG 765 ==
LOC: DL.OBCHECK 23:49 → DL.OB 04-20 → OBSVTOIN 04-21 12:30 → DL.MS 04-21 14:01
PROVIDERS: ADMIT Family Medicine; ATTEND Family Medicine
PROC: 10D00Z1 Extraction of Products of Conception, Low, Open Approach (ICD-10-PCS; principal; 2017-04-21)
PROC: 3E0P7VZ Introduction of Hormone into Female Reproductive, Via Natural or Artificial Opening (ICD-10-PCS; 2017-04-21)
PROC: 00HU33Z Insertion of Infusion Device into Spinal Canal, Percutaneous Approach (ICD-10-PCS; 2017-04-21)
PROC: 3E0R3BZ Introduction of Anesthetic Agent into Spinal Canal, Percutaneous Approach (ICD-10-PCS; 2017-04-21)
DX: O36.63X0 Maternal care for excessive fetal growth, third trimester, not applicable or unspecified (principal); Z68.43 Body mass index [BMI] 50.0-59.9, adult; O62.0 Primary inadequate contractions; Z3A.39 39 weeks gestation of pregnancy; Z37.0 Single live birth; O77.0 Labor and delivery complicated by meconium in amniotic fluid; O99.214 Obesity complicating childbirth; E66.01 Morbid (severe) obesity due to excess calories; O67.8 Other intrapartum hemorrhage; O99.824 Streptococcus B carrier state complicating childbirth; O99.02 Anemia complicating childbirth; Z3A.00 Weeks of gestation of pregnancy not specified
CPT/HCPCS: 36415; 59025; 82550; 82570; 83615; 84156; 84450; 84460; 84520; 84550; 85027; 86850; 86900; 86901; 90471; 90707; A9270-GY; J0171; J0690; J1200; J1885; J1940; J2274; J2300; J2405; J2540; J2590; J3010; J3490; J7050; J7120

== ENCOUNTER 2017-04-30 10:57 | Emergency (ER) | payer OTHER ==
--- NOTE | 2017-04-30 11:34 | EDM.PDOC ---
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 The patient reports she had a on 04/21/17. Since that time, she has been having some pain with urination. The patient reports she was seen by Dr. Raphael on Thursday for a small amount of vaginal bleeding. The patient was supposed to see Dr. Raphael again today at 1330, but noticed that she has been having increased bleeding (filling 2 pads today) and has also been passing blood clots.. The patient continues to have painful urination as well as continued back pain. Onset: Gradual Duration: Day(s):, Constant, Getting Worse Location: Reports: Other Quality: Reports: Other Severity: Moderate Improves with: Reports: None Worsens with: Reports: None Context: Reports: Other ( on 04/21/17) Associated Symptoms: Reports: Other Bilateral Lower Back Pain Score (Numeric/FACES): 8 - Related Data Allergies Allergy/AdvReac Type Severity Reaction Status Date / Time No Known Allergies Allergy Verified 04/20/17 01:12 Home Meds: Home Meds Pnv No.95/Ferrous Fum/Folic AC [ Multivitamin Tablet] 1 tab PO DAILY [History] Ferrous Sulfate 325 mg PO DAILY 09/13/16 [History] hydrOXYzine Pamoate [Vistaril] 25 mg PO BEDTIME 12/04/16 [History] Acetaminophen [Tylenol] 650 mg PO Q4H PRN tablet 04/24/17 [Rx] Acetaminophen/oxyCODONE [Percocet 325-5 MG] 1 tab PO Q4H PRN tablet 04/24/17 [ Rx] Acetaminophen/oxyCODONE [Percocet 325-5 MG] 2 tab PO Q4H PRN tablet 04/24/17 [ Rx] Ferrous Sulfate 325 mg PO WITHBREAKFAST tablet 04/24/17 [Rx] Ibuprofen [IJD: Ibuprofen] 800 mg PO Q8H PRN tablet 04/24/17 [Rx] Past Medical History - Past Health History Medical/Surgical History: Denies Medical/Surgical History HEENT History: Reports: Allergic Rhinitis, Impaired Vision, Other (See Below) Other HEENT History: recurrent tonsillitis Cardiovascular History: Reports: None Respiratory History: Reports: None Gastrointestinal History: Reports: GERD, Hiatal Hernia Genitourinary History: Reports: None 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 OB/BYN History: custody of sister's son Musculoskeletal History: Reports: Other (See Below) Other Musculoskeletal History: right knee sprain Neurological History: Reports: None Psychiatric History: Reports: Anxiety, Depression Endocrine/Metabolic History: Reports: Obesity/BMI 30+ Hematologic History: Reports: Anemia Immunologic History: Reports: None Oncologic (Cancer) History: Reports: None Dermatologic History: Reports: None - Infectious Disease History Infectious Disease History: Reports: None - Past Surgical History Head Surgeries/Procedures: Reports: None Cardiovascular Surgical History: Reports: None Female Surgical History: Reports: None Other Neurological Surgeries/Procedures: EMG-2 EXTREMITIES Social & Family History - Family History Family Medical History: Noncontributory Endocrine/Metabolic: Reports: Diabetes, type II - Tobacco Use Smoking Status *Q: Never Smoker Used Tobacco, but Quit: Yes Month/Year Tobacco Last Used: 11/2009 Second Hand Smoke Exposure: No - Caffeine Use Caffeine Use: Reports: None - Alcohol Use Days Per Week of Alcohol Use: 0 - Recreational Drug Use Recreational Drug Use: No - Living Situation & Occupation Living situation: Reports: Single ED ROS GENERAL - Review of Systems Review Of Systems: ROS reveals no pertinent complaints other than HPI. ED EXAM, RENAL/ - Physical Exam Exam: See Below Exam Limited By: No Limitations General Appearance: Alert, WD/WN, Moderate Distress Eye Exam: Bilateral Eye: EOMI, Normal Inspection, PERRL Ears: Normal External Exam, Normal Canal, Hearing Grossly Normal, Normal TMs Nose: Normal Inspection, Normal Mucosa, No Blood Throat/Mouth: Normal Inspection, Normal Lips, Normal Teeth, Normal Gums, Normal Oropharynx, Normal Voice, No Airway Compromise Head: Atraumatic, Normocephalic Neck: Normal Inspection, Supple, Non-Tender, Full Range of Motion Respiratory/Chest: No Respiratory Distress, Lungs Clear, Normal Breath Sounds, No Accessory Muscle Use, Chest Non-Tender Cardiovascular: Normal Peripheral Pulses GI/Abdominal: Normal Bowel Sounds, Soft, Non-Tender, No Organomegaly, No Distention, No Abnormal Bruit, No Mass, Other (obese) Rectal (Female) Exam: Deferred Back Exam: Normal Inspection, Full Range of Motion, NT Extremities: Normal Inspection, Normal Range of Motion, Non-Tender, Normal Capillary Refill, No Pedal Edema Neurological: Alert, Oriented, CN II-XII Intact, Normal Cognition, Normal Gait, Normal Reflexes, No Motor/Sensory Deficits Psychiatric: Normal Affect, Normal Mood Skin Exam: Warm, Dry, Intact, Normal Color, No Rash Lymphatic: No Adenopathy Course - Vital Signs Last Recorded V/S: Last Vital Signs Temp 36.9 C 04/30/17 11:16 Pulse 81 04/30/17 11:16 Resp 16 04/30/17 11:16 BP 146/81 H 04/30/17 11:16 Pulse Ox 99 04/30/17 11:16 - Orders/Labs/Meds Labs: Laboratory Tests 04/30/17 04/30/17 04/30/17 Range/Units 11:37 11:37 11:37 WBC 13.1 H (5.0-10.0) 10^3/uL RBC 3.49 L (4.2-5.4) 10^6/uL Hgb 9.5 L (12.0-16.0) g/dL Hct 30.4 L (37.0-47.0) % MCV 87.1 D (80-100) fL MCH 27.2 (27.0-34.0) pg MCHC 31.3 L (33.0-35.0) g/dL Plt Count 410 D (150-450) 10^3/uL Neut % (Auto) 79.1 H (42.2-75.2) % Lymph % (Auto) 13.1 L (20.5-50.1) % Clarke % (Auto) 5.4 (2-8) % Eos % (Auto) 2.2 (1.0-3.0) % Baso % (Auto) 0.2 (0.0-1.0) % Sodium 138 (135-145) mmol/L Potassium 3.8 (3.6-5.0) mmol/L Chloride 108 (101-111) mmol/L Carbon Dioxide 22.0 (21.0-31.0) mmol/L Anion Gap 11.8 BUN 7 (7-18) mg/dL Creatinine 0.6 (0.6-1.3) mg/dL Est Cr Clr Drug Dosing 110.32 mL/min Estimated GFR (MDRD) > 60 BUN/Creatinine Ratio 11.66 Glucose 116 H (74-105) mg/dL Uric Acid 5.5 (2.6-7.2) mg/dL Calcium 8.2 L (8.4-10.2) mg/dl Total Bilirubin 0.4 (0.2-1.0) mg/dL AST 30 (10-42) IU/L ALT 35 (10-60) IU/L Alkaline Phosphatase 96 (42-121) IU/L Lactate Dehydrogenase 247 H (91-180) IU/L Total Protein 6.6 L (6.7-8.2) g/dl Albumin 2.9 L (3.2-5.5) g/dl Globulin 3.7 Albumin/Globulin Ratio 0.78 Urine Color (YELLOW) Urine Appearance (CLEAR) Urine pH (5.0-9.0) Ur Specific Tyler (1.005-1.030) Urine Protein (NEGATIVE) Urine Glucose (UA) (NEGATIVE) Urine Ketones (NEGATIVE) Urine Occult Blood (NEGATIVE) Urine Nitrite (NEGATIVE) Urine Bilirubin (NEGATIVE) Urine Urobilinogen (0.2-1.0) mg/dL Ur Leukocyte Esterase (NEGATIVE) Urine RBC /HPF Urine WBC (0-5/HPF) /HPF Ur Epithelial Cells /HPF Amorphous Sediment (0/HPF) /HPF Urine Bacteria (0-FEW/HPF) /HPF Urine Opiates Screen (NEGATIVE) Ur Oxycodone Screen (NEGATIVE) Urine Methadone Screen (NEGATIVE) Ur Barbiturates Screen (NEGATIVE) U Tricyclic Antidepress (NEGATIVE) Ur Phencyclidine Scrn (NEGATIVE) Ur Amphetamine Screen (NEGATIVE) U Methamphetamines Scrn (NEGATIVE) Urine MDMA Screen (NEGATIVE) U Benzodiazepines Scrn (NEGATIVE) Urine Cocaine Screen (NEGATIVE) U Marijuana (THC) Screen (NEGATIVE) 04/30/17 04/30/17 Range/Units 11:38 11:38 WBC (5.0-10.0) 10^3/uL RBC (4.2-5.4) 10^6/uL Hgb (12.0-16.0) g/dL Hct (37.0-47.0) % MCV (80-100) fL MCH (27.0-34.0) pg MCHC (33.0-35.0) g/dL Plt Count (150-450) 10^3/uL Neut % (Auto) (42.2-75.2) % Lymph % (Auto) (20.5-50.1) % Clarke % (Auto) (2-8) % Eos % (Auto) (1.0-3.0) % Baso % (Auto) (0.0-1.0) % Sodium (135-145) mmol/L Potassium (3.6-5.0) mmol/L Chloride (101-111) mmol/L Carbon Dioxide (21.0-31.0) mmol/L Anion Gap BUN (7-18) mg/dL Creatinine (0.6-1.3) mg/dL Est Cr Clr Drug Dosing mL/min Estimated GFR (MDRD) BUN/Creatinine Ratio Glucose (74-105) mg/dL Uric Acid (2.6-7.2) mg/dL Calcium (8.4-10.2) mg/dl Total Bilirubin (0.2-1.0) mg/dL AST (10-42) IU/L ALT (10-60) IU/L Alkaline Phosphatase (42-121) IU/L Lactate Dehydrogenase (91-180) IU/L Total Protein (6.7-8.2) g/dl Albumin (3.2-5.5) g/dl Globulin Albumin/Globulin Ratio Urine Color Red (YELLOW) Urine Appearance Cloudy (CLEAR) Urine pH 7.0 (5.0-9.0) Ur Specific Tyler 1.020 (1.005-1.030) Urine Protein >=300 H (NEGATIVE) Urine Glucose (UA) Negative (NEGATIVE) Urine Ketones Trace H (NEGATIVE) Urine Occult Blood Large H (NEGATIVE) Urine Nitrite Negative (NEGATIVE) Urine Bilirubin Moderate H (NEGATIVE) Urine Urobilinogen 1.0 (0.2-1.0) mg/dL Ur Leukocyte Esterase Large H (NEGATIVE) Urine RBC >100 H /HPF Urine WBC 75-100 H (0-5/HPF) /HPF Ur Epithelial Cells Few /HPF Amorphous Sediment Rare (0/HPF) /HPF Urine Bacteria Few (0-FEW/HPF) /HPF Urine Opiates Screen Negative (NEGATIVE) Ur Oxycodone Screen Positive H (NEGATIVE) Urine Methadone Screen Negative (NEGATIVE) Ur Barbiturates Screen Negative (NEGATIVE) U Tricyclic Antidepress Negative (NEGATIVE) Ur Phencyclidine Scrn Negative (NEGATIVE) Ur Amphetamine Screen Negative (NEGATIVE) U Methamphetamines Scrn Negative (NEGATIVE) Urine MDMA Screen Negative (NEGATIVE) U Benzodiazepines Scrn Negative (NEGATIVE) Urine Cocaine Screen Negative (NEGATIVE) U Marijuana (THC) Screen Negative (NEGATIVE) - Re-Assessments/Exams Free Text/Narrative Re-Assessment/Exam: 04/30/17 11:43 Discussed the patient's symptoms with Dr. Raphael. Dr. Raphael will call back to the ED once the labs have ultrasound. Departure - Departure Time of Disposition: 15:51 Disposition: Home, Self-Care 01 Condition: Good Clinical Impression: bleeding Qualifiers: hemorrhage type: unspecified Qualified Code(s): O72.1 - Other immediate hemorrhage UTI (urinary tract infection) Qualifiers: Urinary tract infection type: site unspecified Hematuria presence: with hematuria Qualified Code(s): N39.0 - Urinary tract infection, site not specified ; R31.9 - Hematuria, unspecified; R31.9 - Hematuria, unspecified - Discharge Information Instructions: Urinary Tract Infection, Adult, Hemorrhage Forms: ED Department Discharge Care Plan Goals: The patient was advised of the examination, lab and ultrasound results during the visit. The patient was seen in the ED by Dr. Raphael. The patient was discharged with a script for Methergine and Keflex to take as directed. The patient should follow-up with Dr. Raphael as scheduled. If the patient has any additional symptoms or concerns, the patient should either visit Dr. Raphael or return to the emergency department.
[2017-04-30 12:17] LABS: CHLORIDE,CL 108 mmol/L (101-111); SODIUM,NA 138 mmol/L (135-145)
--- NOTE | 2017-04-30 13:35 | US ---
Clinical history 32-year-old ( 21 April 2017) female with increased vaginal bleedi ng. Interpretation: Midline uterus with abnormal mixed echodense signal within the endometrial canal, janelle trally (abnormal canal measurement 2.8 cm diameter). Retained products of conception a differential p ossibility. No myometrial fibroid mass. Reproducible large, avascular, mixed echogenic "mass" anterior to the uterus that most probably repre sents postsurgical hematoma. (CT scan pelvis may be helpful further defining this abnormality) No adnexal mass lesion or free fluid appreciated in the cul-de-sac on these images.
[2017-04-30 16:00] VITALS: BP 154/68
--- NOTE | 2017-04-30 16:15 | PCM.SN ---
- Free Text/Narrative Note: 04/30/2017 Presented to the emergency department with Dr. Royal to evaluate patient who presented today with increased vaginal bleeding. She had a 9 days ago. Patient denies any increased pain, dizziness, lightheadedness, or ill feeling. Labs were done in the emergency department and were unremarkable. Her hemoglobin is steady at 9.5. It was 9.2 four days ago. Patient did undergo a pelvic ultrasound which shows "midline uterus with abnormal mixed events with the endometrial canal, centrally... Retained products of conception and differential possibility. No myometrial fibroid mass." Patient had changed pads about an hour previous. He has were examined and were moderately saturated with blood. However, it was also noted that the blood appeared to be quite diluted. Patient was also diagnosed with a urinary tract infection by the Emergency Department provider. OBJECTIVE: Please see [facility] for vital signs. General: Patient is alert and orientated, in no acute distress, well-appearing Abdomen: Nontender over the anterior uterine wall, no costovertebral angle tenderness Genitourinary: Pad that the patient was wearing was examined, small amount of blood noted, no clots ASSESSMENT: bleeding Urinary tract infection PLAN: Bleeding is appropriate for 9 days /postoperative. Given patient's recent and blood loss, we will start her on Methergine 0.2 mg 3 times daily for 4 days. Patient will follow-up with me on Thursday for an appointment and a repeat complete blood count. Urinary tract infection will be treated per the Emergency Department provider. Reasons to return to the emergency department or contact them tomorrow were reviewed with patient, and all questions were answered. Plan was reviewed with the Emergency Department provider, and patient is deemed stable for discharge. Sandra Raphael MD
== END 2017-04-30 16:01 | disposition home or self-care (01) ==
LOC: DL.ED 10:57
DX: O72.1 Other immediate postpartum hemorrhage (principal); O86.20 Urinary tract infection following delivery, unspecified
CPT/HCPCS: 36415; 76830; 76856; 80053; 80305; 81001; 83615; 84550; 85025; 99285

== ENCOUNTER 2018-03-26 15:29 | Emergency (ER) | payer BC, OTHER ==
[2018-03-26 15:37] VITALS: BP 142/71
--- NOTE | 2018-03-26 17:09 | EDM.PDOC ---
Scribed by Genie Maya 03/26/18 1603 for Cesar Weinstein MD <GrisSamirCharito R - Last Filed: 03/26/18 16:47> ED HPI GENERAL MEDICAL PROBLEM - General Chief Complaint: ENT Problem Stated Complaint: REALLY BAD HEAD COLD Time Seen by Provider: 03/26/18 15:35 - Related Data Allergies Allergy/AdvReac Type Severity Reaction Status Date / Time No Known Allergies Allergy Verified 03/26/18 15:37 Home Meds: Home Meds DULoxetine HCl [Duloxetine HCl] 20 mg PO DAILY 03/26/18 [History] LORazepam 0.5 mg PO ASDIRECTED PRN 03/26/18 [History] ED ROS GENERAL - Review of Systems Review Of Systems: ROS reveals no pertinent complaints other than HPI. Respiratory: Reports: Cough ED EXAM, GENERAL - Physical Exam Exam: See Below Exam Limited By: No Limitations General Appearance: Alert, WD/WN, No Apparent Distress Ears: Normal External Exam, Normal Canal, Hearing Grossly Normal, Normal TMs Nose: Normal Inspection, Normal Mucosa, No Blood Throat/Mouth: Normal Inspection, Normal Lips, Normal Teeth, Normal Gums, Normal Oropharynx, Normal Voice, No Airway Compromise, Inflammation (mildy edematous oropharynx) Neck: Normal Inspection, Supple, Non-Tender, Full Range of Motion Respiratory/Chest: No Respiratory Distress, Lungs Clear, Normal Breath Sounds, No Accessory Muscle Use, Chest Non-Tender, Decreased Breath Sounds Cardiovascular: Normal Peripheral Pulses, Regular Rate, Rhythm, No Edema, No Gallop, No JVD, No Murmur, No Rub Extremities: Normal Inspection, Normal Range of Motion, Non-Tender, Normal Capillary Refill, No Pedal Edema Neurological: Alert, Oriented, CN II-XII Intact, Normal Cognition, Normal Gait, Normal Reflexes, No Motor/Sensory Deficits Psychiatric: Normal Affect, Normal Mood Skin Exam: Warm, Dry, Intact, Normal Color, No Rash Lymphatic: No Adenopathy Course - Vital Signs Last Recorded V/S: Last Vital Signs Temp 36.7 C 03/26/18 15:34 Pulse 67 03/26/18 15:34 Resp 18 03/26/18 15:34 BP 142/71 H 03/26/18 15:34 Pulse Ox 99 03/26/18 15:34 - Orders/Labs/Meds Orders: Active Orders 24 hr Category Date Time Status CULTURE STREP A CONFIRMATION [RM] Stat Lab 03/26/18 15:49 Results STREP SCRN A RAPID W CULT CONF [RM] Stat Lab 03/26/18 15:49 Results Departure - Departure Time of Disposition: 16:34 Disposition: Home, Self-Care 01 Condition: Good Clinical Impression: Viral pharyngitis - Discharge Information *PRESCRIPTION DRUG MONITORING PROGRAM REVIEWED*: No *COPY OF PRESCRIPTION DRUG MONITORING REPORT IN PATIENT LIYAH: No Instructions: Pharyngitis, Upper Respiratory Infection, Adult, [id number] Referrals: Nighat Dawkins PA-C [Primary Care Provider] - Forms: ED Department Discharge Additional Instructions: RX: Tessalon Perles 200mg Salt water gargle for comfort. Tylenol and Ibuprofen as needed for pain and fever. Follow up with PCP if symptoms do not improve. - My Orders Last 24 Hours: My Active Orders 03/26/18 15:49 CULTURE STREP A CONFIRMATION [RM] Stat STREP SCRN A RAPID W CULT CONF [RM] Stat - Assessment/Plan Last 24 Hours: My Active Orders 03/26/18 15:49 CULTURE STREP A CONFIRMATION [RM] Stat STREP SCRN A RAPID W CULT CONF [RM] Stat <Cesar Weinstein - Last Filed: 03/26/18 17:09> ED HPI GENERAL MEDICAL PROBLEM - General Source of Information: Reports: Patient, RN, RN Notes Reviewed History Limitations: Reports: No Limitations - History of Present Illness INITIAL COMMENTS - FREE TEXT/NARRATIVE: Patient arrives to the Emergency department with complains of a cold that started 5 days ago. She had complaints of sore throat, fever, chill, runny nose , and ear pain. She states she thought it was improving but worsened again. She has not been seen in a clinic. Denies anyone around her being sick. Denies nausea vomiting, changes in bowels, and abdominal pain. 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 Musculoskeletal History: Reports: Other (See Below) Other Musculoskeletal History: right knee sprain Neurological History: Reports: None Psychiatric History: Reports: Anxiety, Depression Endocrine/Metabolic History: Reports: Obesity/BMI 30+ Hematologic History: Reports: Anemia Immunologic History: Reports: None Oncologic (Cancer) History: Reports: None Dermatologic History: Reports: None - Infectious Disease History Infectious Disease History: Reports: None - Past Surgical History Head Surgeries/Procedures: Reports: None Cardiovascular Surgical History: Reports: None Female Surgical History: Reports: None Other Neurological Surgeries/Procedures: EMG-2 EXTREMITIES Social & Family History - Family History Family Medical History: Noncontributory Endocrine/Metabolic: Reports: Diabetes, type II - Tobacco Use Smoking Status *Q: Current Every Day Smoker Years of Tobacco use: 1 Packs/Tins Daily: 0.2 Second Hand Smoke Exposure: Yes - Caffeine Use Caffeine Use: Reports: None - Recreational Drug Use Recreational Drug Use: No - Living Situation & Occupation Living situation: Reports: Single Course - Orders/Labs/Meds Orders: Active Orders 24 hr Category Date Time Status CULTURE STREP A CONFIRMATION [RM] Stat Lab 03/26/18 15:49 Results STREP SCRN A RAPID W CULT CONF [RM] Stat Lab 03/26/18 15:49 Results Labs: Influenza A and B: Negative. - Re-Assessments/Exams Free Text/Narrative Re-Assessment/Exam: 03/26/18 17:08 I personally performed or re-performed the physical examination and medical decision making. I have verified all student documentation or findings, including history, physical exam and/or medical decision making. - My Orders Last 24 Hours: My Active Orders 03/26/18 15:49 CULTURE STREP A CONFIRMATION [RM] Stat STREP SCRN A RAPID W CULT CONF [RM] Stat - Assessment/Plan Last 24 Hours: My Active Orders 03/26/18 15:49 CULTURE STREP A CONFIRMATION [RM] Stat STREP SCRN A RAPID W CULT CONF [RM] Stat I have read and agree with the documentation that has been completed regarding this visit. By signing this record, I attest that the documentation was completed in my physical presence and is an accurate record of the encounter.
== END 2018-03-26 16:58 | disposition home or self-care (01) ==
LOC: DL.ED 15:29
DX: J02.9 Acute pharyngitis, unspecified (principal); F17.210 Nicotine dependence, cigarettes, uncomplicated
CPT/HCPCS: 87081; 87430; 87804; 99282

== ENCOUNTER 2018-10-19 18:19 | Emergency (ER) | payer BC, OTHER ==
[2018-10-19 18:34] VITALS: BP 139/83
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
[2018-10-19] MEDS ORDERED: Ibuprofen 800 MG Tab PO ONE (19:31)
== END 2018-10-19 19:40 | disposition home or self-care (01) ==
LOC: DL.ED 18:19
DX: S00.83XA Contusion of other part of head, initial encounter (principal); F41.9 Anxiety disorder, unspecified; F32.9 Major depressive disorder, single episode, unspecified; F17.210 Nicotine dependence, cigarettes, uncomplicated; Z79.899 Other long term (current) drug therapy; Y04.2XXA Assault by strike against or bumped into by another person, initial encounter
CPT/HCPCS: 70486; 99284; A9270

== ENCOUNTER 2020-07-15 23:27 | Emergency (ER) | payer BC, OTHER ==
[2020-07-15] MEDS ORDERED: metroNIDAZOLE 250 MG Tab PO ONE (23:28)
[2020-07-15 23:54] VITALS: BP 155/82; PULSE 76
[2020-07-16] MEDS ORDERED: metroNIDAZOLE 250 MG Tab PO ONE (01:26)
[2020-07-16] MEDS ORDERED: Ondansetron 4 MG/2 ML SDV IVPUSH ONE (01:33)
--- NOTE | 2020-07-16 01:33 | EDM.PDOC ---
ED HPI GENERAL MEDICAL PROBLEM - General Chief Complaint: Genitourinary Problem Stated Complaint: PT THINKS BLADDER INFECTION, BACK ACHES, CRAMPS Time Seen by Provider: 07/16/20 01:26 Source of Information: Reports: Patient, RN, RN Notes Reviewed - History of Present Illness INITIAL COMMENTS - FREE TEXT/NARRATIVE: Cris is a 35 y/o female who presents to the ED via personal vehicle with for complaints of urinary frequency and dysuria. The patient reports her symptoms began approximately three days ago and have progressively worsened in that time. Additionally, she attests to white vaginal discharge, suprapubic pressure, nausea, and bilateral low back pain. She denies fever, shaking chills, palpitations, vomiting, hematuria, hematochezia, diarrhea, constipation, vaginal odor, or vaginal itching. She has not noticed vaginal pain with intercourse. The patient smokes 1/4 pack of cigarettes per day; she denies alcohol or recreational drug use. Bilateral Lower Back Pain Score (Numeric/FACES): 6 - Related Data Allergies Allergy/AdvReac Type Severity Reaction Status Date / Time No Known Allergies Allergy Verified 07/15/20 23:56 Home Meds: Home Meds . 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's son Musculoskeletal History: Reports: Other (See Below) Other Musculoskeletal History: right knee sprain Neurological History: Reports: None Psychiatric History: Reports: Anxiety, Depression Endocrine/Metabolic History: Reports: Obesity/BMI 30+ Hematologic History: Reports: Anemia Immunologic History: Reports: None Oncologic (Cancer) History: Reports: None Dermatologic History: Reports: None - Infectious Disease History Infectious Disease History: Reports: None - Past Surgical History Head Surgeries/Procedures: Reports: None HEENT Surgical History: Reports: Oral Surgery, Other (See Below) Other HEENT Surgeries/Procedures: wisdome teeth extraction Cardiovascular Surgical History: Reports: None Female Surgical History: Reports: None Other Female Surgeries/Procedures: VAGINAL CERVICAL LEEP TREATMENT Other Neurological Surgeries/Procedures: EMG-2 EXTREMITIES Social & Family History - Family History Family Medical History: No Pertinent Family History Endocrine/Metabolic: Reports: Diabetes, type II - Tobacco Use Tobacco Use Status *Q: Current Every Day Tobacco User Years of Tobacco use: 3 Packs/Tins Daily: 0.2 - Caffeine Use Caffeine Use: Reports: Tea - Recreational Drug Use Recreational Drug Use: No - Living Situation & Occupation Living situation: Reports: Single ED ROS GENERAL - Review of Systems Review Of Systems: Comprehensive ROS is negative, except as noted in HPI. ED EXAM, RENAL/ - Physical Exam Exam: See Below Exam Limited By: No Limitations General Appearance: Alert, No Apparent Distress Eye Exam: Bilateral Eye: EOMI, Normal Inspection, PERRL (3mm) Throat/Mouth: Normal Inspection, Normal Oropharynx, Normal Voice, No Airway Compromise Head: Atraumatic, Normocephalic Neck: Normal Inspection, Supple, Non-Tender, Full Range of Motion Respiratory/Chest: No Respiratory Distress, Lungs Clear, Normal Breath Sounds, No Accessory Muscle Use, Chest Non-Tender Cardiovascular: Normal Peripheral Pulses, Regular Rate, Rhythm, No Edema, No Gallop, No JVD, No Murmur, No Rub GI/Abdominal: Soft, No Distention, No Abnormal Bruit, No Mass, Pelvis Stable, Tender (To suprapubic palpation), Abnormal Bowel Sounds (Hypoactive bowel sounds). No: Guarding, Rigid, Rebound (Female) Exam: Deferred Rectal (Female) Exam: Deferred Back Exam: Normal Inspection, Full Range of Motion. No: CVA Tenderness (L), CVA Tenderness (R) Extremities: Normal Inspection, Normal Range of Motion, Non-Tender, Normal Capillary Refill, No Pedal Edema Neurological: Alert, Oriented, CN II-XII Intact, Normal Cognition, Normal Gait, No Motor/Sensory Deficits Psychiatric: Normal Affect, Normal Mood Skin Exam: Warm, Dry, Intact, Normal Color, No Rash. No: Cyanosis, Jaundice, Mottled, Pallor Lymphatic: No Adenopathy Course - Vital Signs Last Recorded V/S: Last Vital Signs Temp 97.9 F 07/15/20 23:54 Pulse 76 07/15/20 23:54 Resp 16 07/15/20 23:54 BP 155/82 H 07/15/20 23:54 Pulse Ox 94 L 07/15/20 23:54 - Orders/Labs/Meds Labs: Laboratory Tests 07/15/20 Range/Units 23:58 Urine Color Yellow (YELLOW) Urine Appearance Clear (CLEAR) Urine pH 7.0 (5.0-9.0) Ur Specific [place] 1.020 (1.005-1.030) Urine Protein Negative (NEGATIVE) Urine Glucose (UA) Negative (NEGATIVE) Urine Ketones Negative (NEGATIVE) Urine Occult Blood Trace-intact H (NEGATIVE) Urine Nitrite Negative (NEGATIVE) Urine Bilirubin Negative (NEGATIVE) Urine Urobilinogen 0.2 (0.2-1.0) mg/dL Ur Leukocyte Esterase Negative (NEGATIVE) Urine RBC Not seen /HPF Urine WBC 5-10 H (0-5/HPF) /HPF Ur Epithelial Cells Many H (NOT SEEN) /HPF Urine Bacteria Moderate H (0-FEW/HPF) /HPF Urine Other See note Meds: Medications Discontinued Medications Generic Name Dose Route Start Last Admin Trade Name Jose PRN Reason Stop Dose Admin Metronidazole 500 mg 07/16/20 01:26 07/16/20 01:33 Metronidazole 250 Mg Tab PO 07/16/20 01:27 500 mg ONETIME ONE Administration Metronidazole Confirm 07/16/20 01:42 Metronidazole 250 Mg Tab Administered 07/16/20 01:43 Dose 1,000 mg .ROUTE .STK-MED ONE Metronidazole 250 mg 07/15/20 23:28 Metronidazole 250 Mg Tab PO 07/15/20 23:29 .STK-MED ONE Ondansetron HCl 4 mg 07/16/20 01:33 07/16/20 01:38 Ondansetron 4 Mg/2 Ml Sdv IVPUSH 07/16/20 01:34 Not Given ONETIME ONE Ondansetron HCl 4 mg 07/16/20 01:34 07/16/20 01:38 Ondansetron 4 Mg Tab.Dis PO 07/16/20 01:35 4 mg ONETIME ONE Administration - Re-Assessments/Exams Free Text/Narrative Re-Assessment/Exam: 07/16/20 Zofran ODT 4mg administered. Patient verbalized improvement in symptoms following medication administration. Findings of examination and lab work reviewed with patient and . Will treat BV with metronidazole. Discussed supportive cares for BV as well as measures to avoid recurrent infection. Patient instructed to follow up with primary care provider following course of metronidazole. Red flag signs and symptoms which would warrant reevaluation reviewed. Patient and verbalized understanding and agreement with the plan of care. Departure - Departure Time of Disposition: 01:33 Disposition: Home, Self-Care 01 Condition: Good Clinical Impression: Bacterial vaginosis - Discharge Information *PRESCRIPTION DRUG MONITORING PROGRAM REVIEWED*: Not Applicable *COPY OF PRESCRIPTION DRUG MONITORING REPORT IN PATIENT LIYAH: Not Applicable Instructions: Bacterial Vaginosis, [id number] Referrals: Vincenzo Gibson [Primary Care Provider] - Forms: ED Department Discharge Additional Instructions: Rx: metronidazole 1.) Take all of your antibiotic until it is gone, even as symptoms improve. 2.) Avoid use of scented feminine hygiene products, soaps, or douching. 3.) Follow up with primary care provider regarding today's visit in 8 days following antibiotic course, or sooner as warranted. Sepsis Event Note (ED) - Evaluation Sepsis Screening Result: No Definite Risk
[2020-07-16] MEDS ORDERED: Ondansetron 4 MG Tab.DIS PO ONE (01:34)
[2020-07-16] MEDS ORDERED: metroNIDAZOLE 250 MG Tab ONE (01:42)
== END 2020-07-16 01:47 | disposition home or self-care (01) ==
LOC: DL.ED 23:27
DX: N76.0 Acute vaginitis (principal); B96.89 Other specified bacterial agents as the cause of diseases classified elsewhere; E66.9 Obesity, unspecified; Z72.0 Tobacco use; Z68.30 Body mass index [BMI] 30.0-30.9, adult
CPT/HCPCS: 81001; 99283; A9270

== ENCOUNTER 2021-03-15 13:20 | Emergency (ER) | payer BC, OTHER ==
[2021-03-15 13:36] VITALS: BP 136/77; PULSE 66
[2021-03-15] MEDS ORDERED: Acetaminophen 500 MG Tab PO ONE (14:47)
== END 2021-03-15 15:34 | disposition home or self-care (01) ==
LOC: DL.ED 13:20
DX: R20.2 Paresthesia of skin (principal); R79.1 Abnormal coagulation profile; E66.9 Obesity, unspecified; Z68.42 Body mass index [BMI] 45.0-49.9, adult; Z98.890 Other specified postprocedural states
CPT/HCPCS: 36415; 85379; 93971; 99284; A9270; 99283

== ENCOUNTER 2021-07-20 16:58 | Emergency (ER) | payer BC, OTHER ==
[2021-07-20] MEDS ORDERED: Benzonatate 100 MG Cap PO ONE (16:59)
[2021-07-20 17:10] VITALS: BP 132/81; PULSE 65
[2021-07-20] MEDS ORDERED: Benzonatate 100 MG Cap ONE (17:38)
== END 2021-07-20 17:43 | disposition home or self-care (01) ==
LOC: DL.ED 16:58
DX: R05.9 Cough, unspecified (principal); R09.82 Postnasal drip; E66.9 Obesity, unspecified; Z68.38 Body mass index [BMI] 38.0-38.9, adult; Z86.16 Personal history of COVID-19; Z79.899 Other long term (current) drug therapy
CPT/HCPCS: 99283; A9270

== ENCOUNTER 2022-10-19 17:58 | Emergency (ER) | payer BC, OTHER ==
[2022-10-19] MEDS ORDERED: Sodium Chloride 0.9% 10 ML Syringe FLUSH PRN (20:06)
[2022-10-19] MEDS ORDERED: Metoclopramide 10 MG/2 ML SDV IVPUSH ONE (20:07)
[2022-10-19] MEDS ORDERED: diphenhydrAMINE 50 MG/ML SDV IVPUSH ONE (20:07)
[2022-10-19] MEDS ORDERED: Ketorolac 30 MG/ML SDV IM ONE (20:08)
[2022-10-19 20:35] VITALS: BP 126/72; PULSE 52
== END 2022-10-19 21:15 | disposition home or self-care (01) ==
LOC: DL.ED 17:58
DX: G43.009 Migraine without aura, not intractable, without status migrainosus (principal); E66.9 Obesity, unspecified; Z68.35 Body mass index [BMI] 35.0-35.9, adult; Z86.16 Personal history of COVID-19; Z79.899 Other long term (current) drug therapy
CPT/HCPCS: 96372; 96374; 96375; 99283; J1200; J1885; J2765; J3490

== ENCOUNTER 2022-12-08 18:18 | Emergency (ER) | payer BC, OTHER ==
[2022-12-08] MEDS ORDERED: Sodium Chloride 0.9% 10 ML Syringe FLUSH PRN (19:05)
[2022-12-08 19:30] LABS: BASOPHILS PERCENT AUTO 0.6 % (0.0-1.0); EOSINOPHILS PERCENT AUTO 3.6 % (1.0-3.0); HEMATOCRIT 30.1 % (37.0-47.0); HEMOGLOBIN 9.3 g/dL (12.0-16.0); LYMPHOCYTES PERCENT AUTO 39.4 % (20.5-50.1); MEAN CORPUSCULAR HEMOGLOBIN 21.5 pg (27.0-34.0); MEAN CORPUSCULAR HGB CONC 30.9 g/dL (33.0-35.0); MEAN CORPUSCULAR VOLUME 69.5 fL (80-100); MONOCYTES PERCENT AUTO 8.7 % (2-8); NEUTROPHILS PERCENT AUTO 47.7 % (42.2-75.2); PLATELET COUNT,PLT 331 10^3/uL (150-450); RED BLOOD CELL COUNT 4.33 10^6/uL (4.2-5.4); WHITE BLOOD CELL COUNT,WBC 6.4 10^3/uL (5.0-10.0)
[2022-12-08] MEDS ORDERED: Ondansetron 4 MG/2 ML SDV IVPUSH ONE (19:37)
[2022-12-08] MEDS ORDERED: Ketorolac 30 MG/ML SDV IVPUSH ONE (19:37)
[2022-12-08] MEDS ORDERED: diphenhydrAMINE 50 MG/ML SDV IVPUSH ONE (19:37)
[2022-12-08] MEDS ORDERED: Lactated Ringers 1,000 ML IV ONE (19:37)
[2022-12-08 19:42] LABS: APPEARANCE,URINE CLEAR (CLEAR); BILIRUBIN,URINE NEGATIVE (NEGATIVE); COLOR,URINE YELLOW (YELLOW); GLUCOSE,URINE NEGATIVE (NEGATIVE); KETONES,URINE NEGATIVE (NEGATIVE); LEUKOCYTE ESTERASE,URINE NEGATIVE (NEGATIVE); NITRITE,URINE NEGATIVE (NEGATIVE); OCCULT BLOOD,URINE NEGATIVE (NEGATIVE); PROTEIN,URINE NEGATIVE (NEGATIVE); UROBILINOGEN,URINE 0.2 mg/dL (0.2-1.0)
[2022-12-08 19:52] LABS: A/G RATIO 0.9; ALBUMIN 3.4 g/dL (3.4-5.0); ANION GAP 11.8 mEq/L (7-13); BILIRUBIN TOTAL 0.2 mg/dL (0.2-1.0); BUN/CREATININE RATIO 14.7 (No establ ref range); CALCIUM 8.4 mg/dL (8.5-10.1); CREATININE 0.75 mg/dL (0.55-1.02); EST CRCL DRUG DOSING (CG) 84.13 mL/min; POTASSIUM,K 3.8 mmol/L (3.5-5.1); PROTEIN TOTAL,TP 7.4 g/dL (6.4-8.2)
[2022-12-08 19:57] VITALS: BP 150/90; PULSE 48
== END 2022-12-08 21:09 | disposition home or self-care (01) ==
LOC: DL.ED 18:18
DX: G43.909 Migraine, unspecified, not intractable, without status migrainosus (principal); N93.9 Abnormal uterine and vaginal bleeding, unspecified; D50.9 Iron deficiency anemia, unspecified; K21.9 Gastro-esophageal reflux disease without esophagitis; E66.9 Obesity, unspecified; Z68.35 Body mass index [BMI] 35.0-35.9, adult; Z86.16 Personal history of COVID-19; Z79.899 Other long term (current) drug therapy
CPT/HCPCS: 36415; 80053; 81003; 84703; 85025; 96361; 96374; 96375; 99284; J1200; J1885; J2405; J7120; J3490

== ENCOUNTER 2023-01-16 16:39 | Emergency (ER) | payer BC, OTHER ==
[2023-01-16] MEDS ORDERED: Sodium Chloride 0.9% 10 ML Syringe FLUSH PRN (17:03)
[2023-01-16] MEDS ORDERED: Sodium Chloride 0.9% 1,000 ML IV ONE (17:04)
[2023-01-16] MEDS ORDERED: Ondansetron 4 MG/2 ML SDV IV ONE (17:04)
[2023-01-16] MEDS ORDERED: Ketorolac 30 MG/ML SDV IVPUSH ONE (17:05)
[2023-01-16 17:17] LABS: BASOPHILS PERCENT AUTO 0.5 % (0.0-1.0); EOSINOPHILS PERCENT AUTO 3.1 % (1.0-3.0); HEMATOCRIT 32.2 % (37.0-47.0); LYMPHOCYTES PERCENT AUTO 28.3 % (20.5-50.1); MEAN CORPUSCULAR HEMOGLOBIN 22.1 pg (27.0-34.0); MEAN CORPUSCULAR HGB CONC 31.1 g/dL (33.0-35.0); MEAN CORPUSCULAR VOLUME 71.2 fL (80-100); MONOCYTES PERCENT AUTO 8.2 % (2-8); NEUTROPHILS PERCENT AUTO 59.9 % (42.2-75.2); PLATELET COUNT,PLT 351 10^3/uL (150-450); RED BLOOD CELL COUNT 4.52 10^6/uL (4.2-5.4); WHITE BLOOD CELL COUNT,WBC 8.1 10^3/uL (5.0-10.0)
[2023-01-16 17:32] LABS: APPEARANCE,URINE CLEAR (CLEAR); BILIRUBIN,URINE NEGATIVE (NEGATIVE); COLOR,URINE YELLOW (YELLOW); GLUCOSE,URINE NEGATIVE (NEGATIVE); KETONES,URINE NEGATIVE (NEGATIVE); LEUKOCYTE ESTERASE,URINE NEGATIVE (NEGATIVE); NITRITE,URINE NEGATIVE (NEGATIVE); OCCULT BLOOD,URINE NEGATIVE (NEGATIVE); PH,URINE 6.5 (5.0-9.0); PROTEIN,URINE NEGATIVE (NEGATIVE); UROBILINOGEN,URINE 0.2 mg/dL (0.2-1.0)
[2023-01-16 17:38] LABS: A/G RATIO 0.9; ALBUMIN 3.6 g/dL (3.4-5.0); ANION GAP 13.9 mEq/L (7-13); BILIRUBIN TOTAL 0.2 mg/dL (0.2-1.0); BUN/CREATININE RATIO 20.3 (No establ ref range); CALCIUM 8.7 mg/dL (8.5-10.1); CREATININE 0.69 mg/dL (0.55-1.02); EST CRCL DRUG DOSING (CG) 91.45 mL/min; POTASSIUM,K 3.9 mmol/L (3.5-5.1); PROTEIN TOTAL,TP 7.6 g/dL (6.4-8.2)
[2023-01-16 17:42] LABS: LACTIC ACID 0.8 mmol/L (0.4-2.0)
[2023-01-16] MEDS ORDERED: Iopamidol 612 MG/ML 100 ML Bottle IVPUSH ONE (17:45)
[2023-01-16] MEDS ORDERED: Bisacodyl 5 MG Tab PO ONE (19:13)
[2023-01-16] MEDS ORDERED: Sucralfate 1 GM Tab PO ONE (19:13)
[2023-01-16 19:22] VITALS: BP 108/66; PULSE 58
== END 2023-01-16 19:33 | disposition home or self-care (01) ==
LOC: DL.ED 16:39
DX: R10.11 Right upper quadrant pain (principal); N83.291 Other ovarian cyst, right side; N28.89 Other specified disorders of kidney and ureter; K21.00 Gastro-esophageal reflux disease with esophagitis, without bleeding; Z86.16 Personal history of COVID-19; E66.9 Obesity, unspecified; Z68.35 Body mass index [BMI] 35.0-35.9, adult
CPT/HCPCS: 36415; 74177; 80053; 81003; 81025; 82150; 83605; 83690; 85025; 96361; 96374; 96375; 99284; 99284-25; A9270-GY; J1885; J2405; J3490; J7030; Q9967

== ENCOUNTER 2023-03-27 18:02 | Emergency (ER) | payer BC, OTHER ==
[2023-03-27] MEDS: Lidocaine 1% 5 ML VIAL INJECT ONE (19:18)
[2023-03-27 19:27] VITALS: BP 136/88; PULSE 77
== END 2023-03-27 19:40 | disposition home or self-care (01) ==
LOC: DL.ED 18:02
DX: G43.909 Migraine, unspecified, not intractable, without status migrainosus (principal); E66.9 Obesity, unspecified; Z79.899 Other long term (current) drug therapy; Z86.16 Personal history of COVID-19; Z90.49 Acquired absence of other specified parts of digestive tract; Z68.33 Body mass index [BMI] 33.0-33.9, adult
CPT/HCPCS: 99283; J3490

== ENCOUNTER 2024-02-14 08:49 | Emergency (ER) | payer MEDICAID, OTHER ==
[2024-02-14 09:12] VITALS: BP 118/58; PULSE 57
[2024-02-14 10:06] LABS: BASOPHILS PERCENT AUTO 0.7 % (0.0-1.0); EOSINOPHILS PERCENT AUTO 5.7 % (1.0-3.0); HEMATOCRIT 38.3 % (37.0-47.0); HEMOGLOBIN 12.8 g/dL (12.0-16.0); MEAN CORPUSCULAR HEMOGLOBIN 28.7 pg (27.0-34.0); MEAN CORPUSCULAR HGB CONC 33.4 g/dL (33.0-35.0); MEAN CORPUSCULAR VOLUME 85.9 fL (80-100); MONOCYTES PERCENT AUTO 8.4 % (2-8); NEUTROPHILS PERCENT AUTO 53.2 % (42.2-75.2); PLATELET COUNT,PLT 259 10^3/uL (150-450); RED BLOOD CELL COUNT 4.46 10^6/uL (4.2-5.4); WHITE BLOOD CELL COUNT,WBC 4.4 10^3/uL (5.0-10.0)
[2024-02-14] MEDS: Ondansetron 4 MG Tab.DIS PO ONE (10:09)
[2024-02-14] MEDS: Ibuprofen 600 MG Tab PO ONE (10:09)
[2024-02-14] MEDS: Acetaminophen 500 MG Tab PO ONE (10:09)
[2024-02-14 10:25] LABS: A/G RATIO 0.9; ALBUMIN 3.4 g/dL (3.4-5.0); ANION GAP 13.2 mEq/L (7-13); BILIRUBIN TOTAL 0.4 mg/dL (0.2-1.0); BUN/CREATININE RATIO 19.1 (No establ ref range); CALCIUM 8.6 mg/dL (8.5-10.1); CREATININE 0.68 mg/dL (0.55-1.02); EST CRCL DRUG DOSING (CG) 86.98 mL/min; POTASSIUM,K 4.2 mmol/L (3.5-5.1)
== END 2024-02-14 12:03 | disposition home or self-care (01) ==
LOC: DL.ED 08:49
DX: G44.209 Tension-type headache, unspecified, not intractable (principal); R42 Dizziness and giddiness; E66.9 Obesity, unspecified; Z79.899 Other long term (current) drug therapy; Z86.16 Personal history of COVID-19; Z90.49 Acquired absence of other specified parts of digestive tract; Z68.37 Body mass index [BMI] 37.0-37.9, adult
CPT/HCPCS: 36415; 80053; 85025; 93005; 99283; 99284; A9270

== ENCOUNTER 2024-02-28 15:07 | Emergency (ER) | payer MEDICAID, OTHER ==
[2024-02-28 15:33] VITALS: BP 127/60; PULSE 56
[2024-02-28] MEDS: Ketorolac 30 MG/ML SDV IVPUSH ONE (16:04)
[2024-02-28] MEDS: Ondansetron 4 MG Tab.DIS PO ONE (16:04)
[2024-02-28 16:26] LABS: BILIRUBIN,URINE NEGATIVE (NEGATIVE); COLOR,URINE DARK YELLOW (YELLOW); GLUCOSE,URINE NEGATIVE (NEGATIVE); KETONES,URINE NEGATIVE (NEGATIVE); LEUKOCYTE ESTERASE,URINE NEGATIVE (NEGATIVE); NITRITE,URINE NEGATIVE (NEGATIVE); OCCULT BLOOD,URINE NEGATIVE (NEGATIVE); PH,URINE 5.5 (5.0-9.0); PROTEIN,URINE NEGATIVE (NEGATIVE); UROBILINOGEN,URINE 0.2 mg/dL (0.2-1.0)
[2024-02-28 16:31] LABS: APPEARANCE,URINE SLIGHTLY CLOUDY (CLEAR)
[2024-02-28] MEDS: Acetaminophen 325 MG Tab PO ONE (16:55)
== END 2024-02-28 17:43 | disposition home or self-care (01) ==
LOC: DL.ED 15:07
DX: B34.9 Viral infection, unspecified (principal); E66.9 Obesity, unspecified; Z86.16 Personal history of COVID-19; Z79.891 Long term (current) use of opiate analgesic; Z68.36 Body mass index [BMI] 36.0-36.9, adult
CPT/HCPCS: 81003; 81025; 87428; 96374; 99284; A9270; J1885

== ENCOUNTER 2024-07-29 17:17 | Emergency (ER) | payer MEDICAID, OTHER ==
[2024-07-29] MEDS: Ketorolac 30 MG/ML SDV IVPUSH ONE (17:57)
[2024-07-29] MEDS: diazePAM 10 MG/2 ML Syringe IM ONE (17:59)
[2024-07-29] MEDS: Acetaminophen/HYDROcodone 325-10 MG Tab PO ONE (18:45)
[2024-07-29] MEDS: Lidocaine 5% 700 MG Patch TOP ONE (18:45)
[2024-07-29 18:55] VITALS: BP 109/59; PULSE 57
== END 2024-07-29 18:57 | disposition home or self-care (01) ==
LOC: DL.ED 17:17
DX: M54.32 Sciatica, left side (principal); E66.9 Obesity, unspecified; Z79.899 Other long term (current) drug therapy; Z86.16 Personal history of COVID-19; Z90.49 Acquired absence of other specified parts of digestive tract
CPT/HCPCS: 96372; 96374; 99283-25; 99284; A9270-GY; J1885; J3360